=== PATIENT | male | born 1960 | race Caucasian/White ===

== ENCOUNTER 2022-12-19 14:18 | Inpatient (IN) | payer OTHER, SELFPAY ==
[2022-12-19] VITALS (34 sets, daily range): BP systolic 103–141; BP diastolic 61–72; PULSE 79–91; RESP 12–32; TEMP 37.4; O2SAT 96–100; BMI 51.5
--- NOTE | ~2022-12-19 | XR_ITS ---
EXAMINATION: XR foot RT min 3V DATE: 12/20/2022 05:52 INDICATION: Right foot diabetic ulcer. TECHNIQUE: 3 views of right foot were obtained. COMPARISON: None. FINDINGS: There is amputation of diaphysis of fifth metatarsal. There are erosions of base of fourth proximal phalanx and head of fourth metatarsal. No fracture. There is mild to moderate osteoarthritis of many of the midfoot joints, metatarsophalangeal joints, and interphalangeal joints. There are ent hesophytes at the posterior and plantar aspects of calcaneal tuberosity. Vascular calcifications are noted. IMPRESSION: 1. Erosions of base of fourth proximal phalanx and head of fourth metatarsal, consistent with osteomy elitis. Reviewed, dictated and finalized at location A. IMPRESSION: 1. Erosions of base of fourth proximal phalanx and head of fourth metatarsal, c onsistent with osteomyelitis.
--- NOTE | 2022-12-19 14:49 | PC.NURSE ---
Pt states he is here because his HGB is low. States his HGB is chronically low and has a hx of cancer of Hodgkin's lymphoma. States think the low HGB is due his body not reproducing blood cells. HX of DM, arthritis, HTN, HLD. Pt has a power port in his right chest. Pt has an indwelling schwartz and boots on his lower extremities. Pt is missing half of his first big toe and second toe on his left foot from diabetes. He has also lost his small toe on his right foot from a previous accident. Pt is c/o right sided lower back pain.
[2022-12-19 15:07] LABS: Immature Granulocyte Absolute 0.03 K/mm3 (0.00-0.031); Immature Granulocyte Percent A 0.9 % (0-0.5); Immature Platelet Fraction Pct 5.9 % (0.9-11.2); Lymphocytes Absolute Auto 0.95 K/mm3 (0.9-3.2); Mean Corpuscular HGB Conc 30.2 g/dl (32-36); Mean Corpuscular Hemoglobin 33.9 pg (26-34); Mean Corpuscular Volume 112.2 fl (80-100); Mean Platelet Volume 11.3 fl (7.4-10.4); Monocytes Absolute Auto 0.8 K/mm3 (0.1-0.6); Monocytes Percent Auto 22.4 % (2.6-8.5); Neutrophils Absolute Auto 1.7 K/mm3 (1.3-6.7); Neutrophils Percent Auto 48.7 % (45.5-73.1); Platelet Count Result 107 k/mm3 (150-375); Red Cell Distribution Width 18.5 % (11.5-14.5); White Blood Count 3.4 K/mm3 (4.5-10.0)
[2022-12-19 15:16] LABS: INR 1.1; Prothrombin Time 14.1 Seconds (11.1-14.7)
[2022-12-19 15:18] LABS: Partial Thromboplastin Time 51.9 SECONDS (22.3-36.8)
[2022-12-19 15:23] LABS: Alanine Aminotransferase 24 U/L (6-50); Alkaline Phosphatase 63 U/L (38-126); Anion Gap 2 mmol/L (8-16); Aspartate Amino Transferase 24 U/L (17-59); Bilirubin,Total 1.2 mg/dL (0.2-1.3); Blood Urea Nitrogen 18 mg/dL (9-20); Calcium 7.8 mg/dL (8.4-10.2); Carbon Dioxide 33 mmol/L (22-30); Chloride 102 mmol/L (98-107); Estimated CRCL calculation 136 ml/min; Estimated Glomerular Filt Rate > 60; Glucose 121 mg/dL (65-110); Sodium 137 mmol/L (137-145)
[2022-12-19 15:34] LABS: Hematocrit 20.2 % (42.0-52.0); Hemoglobin 6.1 g/dL (14.0-18.0)
[2022-12-19 15:40] LABS: Anisocytosis 1+ (NORMAL); Macrocytosis 1+ (NORMAL); Platelet Estimate Decreased (Adequate); Schistocytes None Seen (NORMAL)
--- NOTE | 2022-12-19 15:43 | ED.RECABL ---
HPI - Recheck/Abnormal Lab/Rx General Chief Complaint: Recheck/Abnormal Lab/Rx <Zakiya Rose PA-C - Last Filed: 12/19/22 19:43> Stated Complaint: ABN LABS <Zakiya Rose PA-C - Last Filed: 12/19/22 19:43> Time Seen by Provider: 12/19/22 14:57 <RAYSA Amador Last Filed: 12/19/22 19:43> Source: patient and old records reviewed <RAYSA Amador Last Filed: 12/19/22 19:43> Mode of arrival: EMS <RAYSA Amador Last Filed: 12/19/22 19:43> Limitations: no limitations <RAYSA Amador Last Filed: 12/19/22 19:43> History of Present Illness HPI narrative: Patient is a 62-year-old male, with PMH of Hodgkin Lymphoma, who presents to the ED via EMS with report of abnormal labs. Patient is currently a resident of [facility]. Patient reports he was recently admitted to [facility] in [facility] for an extended period of time. He was discharged less than a week ago to the rehab facility. Patient has been in remission for Hodgkin's lymphoma for the last 8 years, but has had concerned that his bone marrow is not producing red blood cells. He had just received numerous blood transfusions over the last several weeks. He had outpatient labs drawn yesterday at the rehab facility and was told his hemoglobin was low at 6.2. He was then referred here for further evaluation. Patient states he has felt in his normal state of health the last few days. He has intermittent lightheadedness. Denies any recent bleeding, denies epistaxis, rectal bleeding, melena, hematuria, chest pain, difficulty breathing, abdominal pain, nausea, vomiting, fevers. Patient is on blood thinners. Patient sees a spindle sander/oncologist [place], but is scheduled to see a new heme-onc with [facility] on 12/31. <RAYSA Amador Last Filed: 12/19/22 19:43> Related Data Allergies/Adverse Reactions: Allergies Allergy/AdvReac Type Severity Reaction Status Date / Time aspirin Allergy Itching Verified 12/19/22 14:34 levofloxacin [From Levaquin] Allergy Rash Verified 12/19/22 14:34 <Zakiya Rose PA-C - Last Filed: 12/19/22 19:43> Review of Systems Review of Systems: CONSTITUTIONAL: Denies fever, chills, or sweats. CARDIOVASCULAR: Denies chest pain. RESPIRATORY: Denies dyspnea. GASTROINTESTINAL: Denies abdominal pain, nausea, rectal bleeding, vomiting, or diarrhea. GENITOURINARY: Denies dysuria or hematuria. MUSCULOSKELETAL: Denies back pain, joint pain, or myalgia. NEUROLOGIC: See HPI. <Zakiya Rose PA-C - Last Filed: 12/19/22 19:43> All systems reviewed & are unremarkable except as noted in HPI and below <Zakiya Rose PA-C - Last Filed: 12/19/22 19:43> [facility] Past Medical History Medical History: Medical History (Updated 12/19/22 @ 19:43 by Zakiya Rose PA-C) Hodgkin lymphoma <Zakiya Rose PA-C - Last Filed: 12/19/22 19:43> Exam Narrative: GENERAL: Chronically ill appearing, morbidly obese, non-toxic, in no acute distress. HEAD: Normocephalic, atraumatic. NECK: Supple. No adenopathy, no masses. RESPIRATORY: Airway patent, respirations nonlabored. Clear to auscultation bilaterally, no rales, rhonchi, wheezing. CARDIOVASCULAR: Regular rate and rhythm without murmurs, rubs, or gallops. Radial pulses 2+ and equal bilaterally. ABDOMINAL: Soft, nontender, nondistended, no hepatosplenomegaly. Normoactive BS. MUSCULOSKELETAL: Moves all extremities. Soft braces on BLE. Several toe amputations. SKIN: Warm, dry, pale. No rashes. NEURO: A&O X3. Speech clear. Cranial nerves II-XII grossly intact. No ataxic movements. PSYCHIATRIC: Appropriate mood and affect. Normal interaction. 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 I performed all aspects of the MDM as
--- NOTE | 2022-12-19 20:06 | ADMGEN ---
This patient, John Tony, was admitted to Medical Room 341-01. Patient/family oriented to hospital policies and general routines including ID bracelet, bed and alarms, visiting hours, pain management, procedures, bathroom and other care routines, personal items, smoking policy, room service/diet, and visiting hours. Information on how to activate the Rapid Response Team has been discussed. Patient/Family are encouraged to report perceived risks to care and to ask questions if they do not understand what they are told or what they should do.
[2022-12-19 21:51] LABS: Glucose Point of Care 151 mg/dl (65-105)
--- NOTE | 2022-12-19 22:28 | PM.IMHP ---
H&P: HPI History of Present Illness Date/Time: 12/19/22 22:28 Chief Complaint: Abnormal lab Narrative: this is a 62-year-old male patient who has a history of Hodgkin lymphoma. The patient presented to the emergency room with report of abnormal labs. The patient did have an extensive stay at [facility] in [facility]. The patient is currently at [facility] an adverse ill. The patient has a Port-A-Cath and has been treated for lymphoma for the last 8 years. The patient stated that he has been having some chemotherapy. The patient has intermittent lightheadedness. He appears pale. He denies any recent bleeding or nose bleed. He denies having any chest pain or difficulty breathing. No shortness of breath. No nausea vomiting or diarrhea. The patient sees a spanish interpreter/translator /oncologist in [place] but is scheduled to see a new physician at with [facility] on 12/31/2022. His white count 3.4. RBC 1.8. H&H is 6.1 and 20.2. MCV is 112.2. Platelets 107. Blood sugar 151. The patient has been typed and cross-matched for packed red blood cells however the patient has multiple antibiotic and he stated that his taken up to 28 hours in the past to receive a unit of packed red blood cells. The patient is very pale at this time. The patient was also noted to have a chronic diabetic foot ulcer on the left outer surface. The patient stated that he recently received antibiotics for that wound to his left foot. The patient was started on IV fluids. The patient is being admitted to observation status on the date of service of 12/19/2022 Review of Systems Review of Systems: All systems reviewed & are unremarkable except as noted in HPI and below Constitutional: Constitutional: Reports as per HPI and Reports no additional constitutional complaints Eyes: Eyes: Reports as per HPI and Reports no additional eye complaints ENT: Reports system reviewed and no additional complaints, except as documented and Reports Normal hearing present Cardiovascular: Cardiovascular: Reports no additional cardiovascular complaints Respiratory: Respiratory: Reports no additional respiratory complaints and Reports no additional respiratory complaints Gastrointestinal: Gastrointestinal: Reports as per HPI and Reports no additional gastrointestinal complaints Musculoskeletal: Musculoskeletal: Reports no additional musculoskeletal complaints Integumentary/Breasts: Skin/Breast: Reports system reviewed and no additional complaints, except as docu and Reports as per HPI Neurologic: Reports system reviewed and no additional complaints, except as documented, Reports as per HPI and Reports Normal hearing present Psychiatric: Psychiatric: Reports no additional psychiatric complaints and Reports as per HPI Endocrine: Endocrine: Reports no additional endocrine complaints Hematologic/Lymphatic: Hematologic/Lymphatic: Reports no additional hematologic/lymphatic complaints Allergic/Immunologic: Allergic/Immunologic: Reports no additional allergic/immunologic complaints [facility] Past Medical History Medical History (Updated 12/20/22 @ 02:36 by Corinne Griffin NP) Chronic indwelling Murillo catheter Diabetic foot ulcer DM2 (diabetes mellitus, type 2) History of kidney stones Hodgkin lymphoma Hyperlipidemia Hypertension Port-A-Cath in place Surgical History Surgical History (Updated 12/20/22 @ 02:23 by Corinne Griffin NP) History of renal stent History of surgery on lower extremity repair of right thigh muscle. Family History Family History Father Acute myocardial infarction Congestive heart failure Diabetes mellitus Hypertension Mother Acute myocardial infarction Cerebrovascular accident Congestive heart failure Diabetes mellitus Hypertension Sibling Asthma Father Asthma Daughter Asthma Social History Social History (Updated 12/20/22 @ 02:24 by Corinne
[2022-12-20] VITALS (11 sets, daily range): BP systolic 109–131; BP diastolic 52–68; PULSE 63–90; RESP 14–20; TEMP 35.7–37.1; O2SAT 97–100
[2022-12-20] MEDS: CEFEPIME 2 GM/NS 50 ML 2 GM/50 ML BAG IVPB ×2 (03:03→17:24)
[2022-12-20] MEDS: metroNIDAZOLE 500 MG/ISO 100ML 500 MG/100 ML BAG 100 MG IVPB ×3 (03:45→21:37)
[2022-12-20] MEDS: VANCOMYCIN 1,250 MG/NS 250 ML 1,250 MG/250 ML BAG 166.67 MG IVPB ×2 (04:19→05:59)
[2022-12-20] MEDS: ACETAMINOPHEN 325 MG TABLET 650 MG PO (07:41)
[2022-12-20 08:37] LABS: Glucose Point of Care 207 mg/dl (65-105)
[2022-12-20] MEDS: INSULIN ASPART (*BKC) 100 UNITS/ML SUB-Q ×4 (08:58→21:34)
[2022-12-20] MEDS: amLODIPine BESYLATE 5 MG TABLET 10 MG PO (09:03)
[2022-12-20] MEDS: DULoxetine HCL 30 MG CAPSULE.DR PO (09:04)
[2022-12-20] MEDS: FERROUS SULFATE 324 MG TABLET PO (09:04)
[2022-12-20] MEDS: FAMOTIDINE 20 MG TABLET PO ×2 (09:04→17:38)
[2022-12-20] MEDS: CYANOCOBALAMIN 500 MCG TABLET PO (09:04)
[2022-12-20] MEDS: POTASSIUM CHLORIDE 10 MEQ TABLET.ER PO ×2 (09:05→17:39)
[2022-12-20] MEDS: FOLIC ACID 1 MG TABLET PO (09:05)
[2022-12-20] MEDS: MAGNESIUM OXIDE 400 MG TABLET PO (09:05)
[2022-12-20] MEDS: MULTIVITAMINS THERAPEUTIC TAB (*BKC) 1 TABLET PO (09:05)
[2022-12-20] MEDS: MICONAZOLE NITRATE 2% CREAM 30 GM TUBE 1 APPLIC TOPICAL ×2 (09:06→17:38)
[2022-12-20] MEDS: INSULIN GLARGINE (*BKC) 100 UNITS/ML 35 UNITS SUB-Q ×2 (09:09→17:27)
[2022-12-20] MEDS: SODIUM CHLORIDE 0.9% IV 250 ML 30 ML IV CONT (11:54)
[2022-12-20 12:34] LABS: Glucose Point of Care 224 mg/dl (65-105)
--- NOTE | 2022-12-20 13:03 | WPDPN ---
Progress Note: A&P Assessment and Plan (1) Pancytopenia: Code(s): D61.818 - Other pancytopenia Status: Acute Assessment and Plan: the patient did have an extensive stay at [facility]. I am requesting medical records from that hospital stay. The patient has a Port-A-Cath and states that he takes chemotherapy for his Hodgkin's lymphoma. I asked the patient if he wanted to see the oncologist water pipe installer here. However the patient stated that next week he has a an appointment with an water pipe installer / oncologist at [facility] and will like to follow up with that appointment. The patient stated he would not like to follow water pipe installer here at this time. However the patient stated that he just wants to get his blood transfusion be discharged back to home. However the patient has multiple antibodies so it may take some time for the patient to receive his blood transfusion. The patient stated that it took 28 hours to receive his blood the last time that he received blood. The patient stated he has had multiple transfusions in the past. 12/20/2022 interval history: patient with hx of Hodgkin lymphoma presented with anemia with a hemoglobin of 6, patient denies any any bleeding or bruising, this is persistent patient is seen by water pipe installer being treated, will transfuse 1 unit of pack RBC, also patient has history of diabetes and lower extremity diabetic wound being treated with Cefepime and and vancomycin, will have a wound team evaluate the patient. (2) Hodgkin lymphoma: Code(s): C81.90 - Hodgkin lymphoma, unspecified, unspecified site Status: Acute Assessment and Plan: The patient stated he is undergoing chemotherapy and that he will see a new water pipe installer oncologist at [facility] this next week. (3) Hypertension: Code(s): I10 - Essential (primary) hypertension Status: Acute Assessment and Plan: Continue with amlodipine and doxepin. (4) Diabetic foot ulcer: Code(s): E11.621 - Type 2 diabetes mellitus with foot ulcer; L97.509 - Non-pressure chronic ulcer of other part of unspecified foot with unspecified severity Status: Acute Assessment and Plan: The patient was started on antibiotic stewardship for cellulitis and diabetic patient. He is on cefepime Flagyl and vancomycin. Pharmacy to dose please blood and wound culture pending. Wound care consult was placed. (5) DM2 (diabetes mellitus, type 2): Code(s): E11.9 - Type 2 diabetes mellitus without complications Status: Acute Assessment and Plan: Accu-Cheks AC and HS with sliding scale insulin. Check A1c if not checked in the last 3 months. (6) Hyperlipidemia: Code(s): E78.5 - Hyperlipidemia, unspecified Status: Acute Assessment and Plan: continue with atorvastatin. (7) Chronic indwelling Murillo catheter: Code(s): Z97.8 - Presence of other specified devices Status: Acute Assessment and Plan: The patient stated that he has had this for years. Subjective Date/time seen: 12/20/22 13:03 Interval history: Chief Complaint: ? Abnormal lab HPI-Narrative: ?this is a 62-year-old male patient who has a history of Hodgkin lymphoma.? The patient presented to the emergency room with report of abnormal labs.? The patient did have an extensive stay at [facility] in [facility] The patient is currently at [facility] an adverse ill.? The patient has a Port-A-Cath and has been treated for lymphoma for the last 8 years.? The patient stated that he has been having some chemotherapy.? The patient has intermittent lightheadedness.? He appears pale.? He denies any recent bleeding or nose bleed.? He denies having any chest pain or difficulty breathing.? No shortness of breath.? No nausea vomiting or diarrhea.? The patient sees a water pipe installer /oncologist in [place] but is scheduled to see a new physician at with [facility]
[2022-12-20 17:26] LABS: Glucose Point of Care 238 mg/dl (65-105)
[2022-12-20] MEDS: CALCIUM CARBONATE (TUMS) 500 MG (200 MG ELEMENTAL) PO (18:09)
[2022-12-20 20:53] LABS: Glucose Point of Care 271 mg/dl (65-105)
[2022-12-20] MEDS: DOXEPIN HCL 25 MG CAPSULE PO (21:35)
[2022-12-20] MEDS: ATORVASTATIN 40 MG TABLET PO (21:35)
[2022-12-21] VITALS (8 sets, daily range): BP systolic 120–149; BP diastolic 58–70; PULSE 77–81; RESP 17–20; TEMP 35.9–36.9; O2SAT 96–99
[2022-12-21] MEDS: CEFEPIME 2 GM/NS 50 ML 2 GM/50 ML BAG IVPB ×2 (04:00→16:07)
[2022-12-21 05:04] LABS: Immature Granulocyte Absolute 0.03 K/mm3 (0.00-0.031); Immature Granulocyte Percent A 1.1 % (0-0.5); Immature Platelet Fraction Pct 4.6 % (0.9-11.2); Lymphocytes Absolute Auto 0.79 K/mm3 (0.9-3.2); Lymphocytes Percent Auto 29.4 % (18.3-44.2); Mean Corpuscular HGB Conc 31.4 g/dl (32-36); Mean Corpuscular Hemoglobin 33.3 pg (26-34); Mean Corpuscular Volume 106.3 fl (80-100); Mean Platelet Volume 11.3 fl (7.4-10.4); Monocytes Absolute Auto 0.7 K/mm3 (0.1-0.6); Monocytes Percent Auto 26.8 % (2.6-8.5); Neutrophils Absolute Auto 1.2 K/mm3 (1.3-6.7); Neutrophils Percent Auto 42.7 % (45.5-73.1); Platelet Count Result 88 k/mm3 (150-375); Red Blood Count 1.92 M/mm3 (4.6-6.20); Red Cell Distribution Width 19.5 % (11.5-14.5); White Blood Count 2.7 K/mm3 (4.5-10.0)
[2022-12-21 05:18] LABS: Alanine Aminotransferase 19 U/L (6-50); Albumin Level 2.7 g/dL (3.5-5.1); Alkaline Phosphatase 61 U/L (38-126); Anion Gap 4 mmol/L (8-16); Aspartate Amino Transferase 21 U/L (17-59); Bilirubin,Total 1.3 mg/dL (0.2-1.3); Blood Urea Nitrogen 16 mg/dL (9-20); Calcium 7.6 mg/dL (8.4-10.2); Carbon Dioxide 30 mmol/L (22-30); Chloride 101 mmol/L (98-107); Estimated CRCL calculation 132 ml/min; Estimated Glomerular Filt Rate > 60; Glucose 229 mg/dL (65-110); Magnesium 1.4 mg/dL (1.6-2.3); Potassium 3.7 mmol/L (3.4-5.0); Sodium 135 mmol/L (137-145)
[2022-12-21 05:24] LABS: Hematocrit 20.4 % (42.0-52.0); Hemoglobin 6.4 g/dL (14.0-18.0)
[2022-12-21] MEDS: metroNIDAZOLE 500 MG/ISO 100ML 500 MG/100 ML BAG 100 MG IVPB ×3 (06:40→21:34)
[2022-12-21 06:54] LABS: Anisocytosis 2+ (NORMAL); Hypochromasia 1+ (NORMAL); Platelet Estimate Decreased (Adequate); Schistocytes None Seen (NORMAL)
[2022-12-21 08:36] LABS: Glucose Point of Care 243 mg/dl (65-105)
[2022-12-21] MEDS: INSULIN ASPART (*BKC) 100 UNITS/ML SUB-Q ×4 (08:55→21:34)
[2022-12-21] MEDS: INSULIN GLARGINE (*BKC) 100 UNITS/ML 35 UNITS SUB-Q ×2 (08:56→17:41)
[2022-12-21] MEDS: POTASSIUM CHLORIDE 10 MEQ TABLET.ER PO ×2 (09:01→17:05)
[2022-12-21] MEDS: MAGNESIUM OXIDE 400 MG TABLET PO (09:01)
[2022-12-21] MEDS: amLODIPine BESYLATE 5 MG TABLET 10 MG PO (09:01)
[2022-12-21] MEDS: FERROUS SULFATE 324 MG TABLET PO (09:02)
[2022-12-21] MEDS: MULTIVITAMINS THERAPEUTIC TAB (*BKC) 1 TABLET PO (09:02)
[2022-12-21] MEDS: CYANOCOBALAMIN 500 MCG TABLET PO (09:02)
[2022-12-21] MEDS: FOLIC ACID 1 MG TABLET PO (09:02)
[2022-12-21] MEDS: FAMOTIDINE 20 MG TABLET PO ×2 (09:02→17:06)
[2022-12-21] MEDS: DULoxetine HCL 30 MG CAPSULE.DR PO (09:02)
[2022-12-21] MEDS: MICONAZOLE NITRATE 2% CREAM 30 GM TUBE 1 APPLIC TOPICAL ×2 (09:03→17:05)
--- NOTE | 2022-12-21 10:04 | PM.IMPN ---
Progress Note: A&P Assessment and Plan (1) Pancytopenia: Code(s): D61.818 - Other pancytopenia Status: Acute Assessment and Plan: patient with hx of Hodgkin lymphoma presented with anemia with a hemoglobin of 6, patient denies any any bleeding or bruising, this is persistent patient is seen by strike on machine operator being treated, transfuse 2 unit of pack RBC, hemoglobin is still low at 6.4. Will transfuse 2 more units (2) Hodgkin lymphoma: Code(s): C81.90 - Hodgkin lymphoma, unspecified, unspecified site Status: Acute Assessment and Plan: The patient stated he is undergoing chemotherapy and that he will see a new strike on machine operator oncologist at [facility] this next week. (3) Hypertension: Code(s): I10 - Essential (primary) hypertension Status: Acute Assessment and Plan: Continue with amlodipine and doxepin. (4) Diabetic foot ulcer: Code(s): E11.621 - Type 2 diabetes mellitus with foot ulcer; L97.509 - Non-pressure chronic ulcer of other part of unspecified foot with unspecified severity Status: Acute Assessment and Plan: The patient was started on antibiotic stewardship for cellulitis and diabetic patient. He is on cefepime Flagyl and vancomycin. Pharmacy to dose please blood and wound culture pending. Wound care consult was placed. (5) DM2 (diabetes mellitus, type 2): Code(s): E11.9 - Type 2 diabetes mellitus without complications Status: Acute Assessment and Plan: Accu-Cheks AC and HS with sliding scale insulin. (6) Hyperlipidemia: Code(s): E78.5 - Hyperlipidemia, unspecified Status: Acute Assessment and Plan: continue with atorvastatin. (7) Chronic indwelling Murillo catheter: Code(s): Z97.8 - Presence of other specified devices Status: Acute Assessment and Plan: The patient stated that he has had this for years. Subjective Date/time seen: 12/21/22 10:04 Interval history: No issues at present Review of Systems Review of Systems: All systems reviewed & are unremarkable except as noted in HPI and below Exam Narrative: Morbidly obese Patient is comfortable, NAD HEENT: eyes are clear and none icteric LUNGS: Normal respiratory effort ABD: Obese distended Lower extremities: no edema SKIN: nonjaundiced Neuro: grossly intact. Objective Data Vital Signs Vital Signs: Vital Signs - 24 hr 12/20/22 12:03 12/20/22 12:18 12/20/22 12:18 Temperature 96.6 F L 96.6 F L 96.7 F L Pulse Rate 78 82 90 Respiratory Rate 14 14 16 Blood Pressure 123/54 L 115/56 L 131/67 Pulse Oximetry 98 100 100 12/20/22 13:06 12/20/22 13:09 12/20/22 14:13 Temperature 96.3 F L 96.3 F L 96.6 F L Pulse Rate 83 83 77 Respiratory Rate 14 14 16 Blood Pressure 122/61 122/61 125/55 L Pulse Oximetry 98 98 97 12/20/22 14:28 12/20/22 14:49 12/20/22 15:13 Temperature 96.5 F L 96.8 F L 96.9 F L Pulse Rate 79 80 80 Respiratory Rate 16 16 14 Blood Pressure 109/56 L 119/60 130/66 Pulse Oximetry 100 97 98 12/20/22 19:52 12/21/22 04:11 Temperature 98.7 F 98.4 F Pulse Rate 63 79 Respiratory Rate 20 20 Blood Pressure 121/68 131/58 L Pulse Oximetry 100 96 Intake/Output Intake/Output: Intake & Output 12/18/22 12/19/22 12/20/22 12/21/22 23:59 23:59 23:59 23:59 Intake Total 350 / 350 3092 / 3092 460 / 460 Output Total 2450 / 2450 1050 / 1050 Balance 350 / 350 642 / 642 -590 / -590 Meds/Results Medications: Active Medications Generic Name Dose Route Start Last Admin Trade Name Shai PRN Reason Stop Dose Admin Acetaminophen 650 mg 12/20/22 02:15 12/20/22 07:41 Acetaminophen 325 Mg Tablet PO 650 mg Q4H PRN Administration Pain (Scale Score 1-3) Albuterol 2.5 mg 12/20/22 02:15 Albuterol Sulfate Neb 2.5 Mg/3 Ml Inh INHALATION Q4H PRN Shortness Of Breath Or Wheezing Amlodipine Besylate 10 mg 12/20/22 09:00 12/21/22 09:01 Amlodipine Besylat
[2022-12-21] MEDS: SODIUM CHLORIDE 0.9% IV 250 ML 30 ML IV CONT (11:54)
[2022-12-21 12:20] LABS: Glucose Point of Care 231 mg/dl (65-105)
[2022-12-21 17:30] LABS: Glucose Point of Care 284 mg/dl (65-105)
[2022-12-21 17:48] LABS: Vancomycin Trough 15.8 ug/mL (10.0-20.0)
[2022-12-21 20:46] LABS: Glucose Point of Care 316 mg/dl (65-105)
[2022-12-21] MEDS: DOXEPIN HCL 25 MG CAPSULE PO (21:34)
[2022-12-21] MEDS: ATORVASTATIN 40 MG TABLET PO (21:34)
[2022-12-22] VITALS (9 sets, daily range): BP systolic 111–146; BP diastolic 65–98; PULSE 70–82; RESP 16–20; TEMP 36.4–37.4; O2SAT 95–100
[2022-12-22] MEDS: CEFEPIME 2 GM/NS 50 ML 2 GM/50 ML BAG IVPB (03:27)
[2022-12-22] MEDS: ACETAMINOPHEN 325 MG TABLET 650 MG PO (03:28)
[2022-12-22 05:33] LABS: Hematocrit 22.6 % (42.0-52.0); Hemoglobin 7.2 g/dL (14.0-18.0); Immature Granulocyte Absolute 0.03 K/mm3 (0.00-0.031); Immature Granulocyte Percent A 1.1 % (0-0.5); Lymphocytes Absolute Auto 0.78 K/mm3 (0.9-3.2); Lymphocytes Percent Auto 29.3 % (18.3-44.2); Mean Corpuscular HGB Conc 31.9 g/dl (32-36); Mean Corpuscular Hemoglobin 33.6 pg (26-34); Mean Corpuscular Volume 105.6 fl (80-100); Mean Platelet Volume 11.3 fl (7.4-10.4); Monocytes Absolute Auto 0.8 K/mm3 (0.1-0.6); Monocytes Percent Auto 31.2 % (2.6-8.5); Neutrophils Percent Auto 38.4 % (45.5-73.1); Platelet Count Result 88 k/mm3 (150-375); Red Blood Count 2.14 M/mm3 (4.6-6.20); White Blood Count 2.7 K/mm3 (4.5-10.0)
[2022-12-22 05:44] LABS: Alanine Aminotransferase 17 U/L (6-50); Albumin Level 2.8 g/dL (3.5-5.1); Alkaline Phosphatase 58 U/L (38-126); Anion Gap 3 mmol/L (8-16); Aspartate Amino Transferase 18 U/L (17-59); Bilirubin,Total 1.2 mg/dL (0.2-1.3); Blood Urea Nitrogen 15 mg/dL (9-20); Calcium 7.4 mg/dL (8.4-10.2); Carbon Dioxide 30 mmol/L (22-30); Chloride 102 mmol/L (98-107); Estimated CRCL calculation 132 ml/min; Estimated Glomerular Filt Rate > 60; Glucose 185 mg/dL (65-110); Magnesium 1.4 mg/dL (1.6-2.3); Potassium 3.3 mmol/L (3.4-5.0); Sodium 135 mmol/L (137-145)
[2022-12-22 05:52] LABS: Platelet Estimate Decreased (Adequate); Schistocytes None Seen (NORMAL)
[2022-12-22] MEDS: metroNIDAZOLE 500 MG/ISO 100ML 500 MG/100 ML BAG 100 MG IVPB (07:34)
[2022-12-22 08:26] LABS: Glucose Point of Care 187 mg/dl (65-105)
[2022-12-22] MEDS: FAMOTIDINE 20 MG TABLET PO ×2 (08:55→17:17)
[2022-12-22] MEDS: amLODIPine BESYLATE 5 MG TABLET 10 MG PO (08:55)
[2022-12-22] MEDS: ERGOCALCIFEROL 50,000 UNITS CAPSULE 50000 UNITS PO (08:56)
[2022-12-22] MEDS: FOLIC ACID 1 MG TABLET PO (08:56)
[2022-12-22] MEDS: FERROUS SULFATE 324 MG TABLET PO (08:56)
[2022-12-22] MEDS: DULoxetine HCL 30 MG CAPSULE.DR PO (08:56)
[2022-12-22] MEDS: MAGNESIUM OXIDE 400 MG TABLET PO (08:56)
[2022-12-22] MEDS: MULTIVITAMINS THERAPEUTIC TAB (*BKC) 1 TABLET PO (08:56)
[2022-12-22] MEDS: CYANOCOBALAMIN 500 MCG TABLET PO (08:56)
[2022-12-22] MEDS: POTASSIUM CHLORIDE 10 MEQ TABLET.ER PO ×2 (08:56→18:54)
[2022-12-22] MEDS: INSULIN GLARGINE (*BKC) 100 UNITS/ML 35 UNITS SUB-Q ×2 (08:57→17:14)
[2022-12-22] MEDS: MICONAZOLE NITRATE 2% CREAM 30 GM TUBE 1 APPLIC TOPICAL ×2 (08:59→17:12)
[2022-12-22] MEDS: MAGNESIUM SULF 2 GM/WATER 50ML 2 GM/50 ML BAG IVPB (09:05)
[2022-12-22] MEDS: POTASSIUM CHLORIDE 20 MEQ TABLET 40 MEQ PO (09:05)
[2022-12-22] MEDS: SODIUM CHLORIDE 0.9% IV 250 ML 30 ML (10:00)
--- NOTE | 2022-12-22 11:49 | PM.IMPN ---
Progress Note: A&P Assessment and Plan (1) Pancytopenia: Code(s): D61.818 - Other pancytopenia Status: Acute Assessment and Plan: patient with hx of Hodgkin lymphoma presented with anemia with a hemoglobin of 6, patient denies any any bleeding or bruising, patient is seen by boarder machine being treated, 4 units of PRBC being transfused (2) Hodgkin lymphoma: Code(s): C81.90 - Hodgkin lymphoma, unspecified, unspecified site Status: Acute Assessment and Plan: The patient stated he is undergoing chemotherapy and that he will see a new boarder machine oncologist at [facility] this next week. (3) Hypertension: Code(s): I10 - Essential (primary) hypertension Status: Acute Assessment and Plan: Continue with amlodipine and doxepin. (4) Diabetic foot ulcer: Code(s): E11.621 - Type 2 diabetes mellitus with foot ulcer; L97.509 - Non-pressure chronic ulcer of other part of unspecified foot with unspecified severity Status: Acute Assessment and Plan: The patient was started on cefepime Flagyl and vancomycin. Blood cultures negative so far. Wound culture growing Staph aureus. Discontinue cefepime and Flagyl and continue vancomycin. Sensitivity pending Wound care consult was placed. (5) DM2 (diabetes mellitus, type 2): Code(s): E11.9 - Type 2 diabetes mellitus without complications Status: Acute Assessment and Plan: Accu-Cheks AC and HS with sliding scale insulin. (6) Hyperlipidemia: Code(s): E78.5 - Hyperlipidemia, unspecified Status: Acute Assessment and Plan: continue with atorvastatin. (7) Chronic indwelling Murillo catheter: Code(s): Z97.8 - Presence of other specified devices Status: Acute Assessment and Plan: The patient stated that he has had this for years. (8) Electrolyte abnormality: Code(s): E87.8 - Other disorders of electrolyte and fluid balance, not elsewhere classified Status: Acute Assessment and Plan: Low potassium magnesium being replaced Subjective Date/time seen: 12/22/22 11:49 Interval history: Remains stable. No acute events Review of Systems Review of Systems: All systems reviewed & are unremarkable except as noted in HPI and below Exam Narrative: Morbidly obese Patient is comfortable, NAD HEENT: eyes are clear and none icteric LUNGS: Normal respiratory effort ABD: Obese distended Lower extremities: no edema SKIN: nonjaundiced Neuro: grossly intact. Objective Data Vital Signs Vital Signs: Vital Signs - 24 hr 12/21/22 11:50 12/21/22 12:06 12/21/22 13:00 Temperature 97.0 F L 96.6 F L 97.2 F L Pulse Rate 77 81 78 Respiratory Rate 17 18 17 Blood Pressure 120/63 140/66 139/58 L Pulse Oximetry 99 98 99 Oxygen Delivery 12/21/22 14:00 12/21/22 19:33 12/21/22 20:00 Temperature 97.3 F L 98.2 F Pulse Rate 80 79 Respiratory Rate 18 18 Blood Pressure 149/70 H 131/58 L Pulse Oximetry 98 97 Oxygen Delivery Room Air 12/22/22 03:57 12/22/22 09:38 12/22/22 10:23 Temperature 97.5 F L 98.4 F Pulse Rate 77 70 Respiratory Rate 16 18 Blood Pressure 132/67 128/67 Pulse Oximetry 98 99 99 Oxygen Delivery Room Air 12/22/22 10:39 Temperature 98.2 F Pulse Rate 72 Respiratory Rate 18 Blood Pressure 111/85 Pulse Oximetry 95 Oxygen Delivery Intake/Output Intake/Output: Intake & Output 12/19/22 12/20/22 12/21/22 12/22/22 23:59 23:59 23:59 23:59 Intake Total 350 / 350 3092 / 3092 4580 / 4580 642 / 642 Output Total 2450 / 2450 2850 / 2850 1999 / 1999 Balance 350 / 350 642 / 642 1730 / 1730 -1358 / -1358 Meds/Results Medications: Active Medications Generic Name Dose Route Start Last Admin Trade Name Freq PRN Reason Stop Dose Admin Acetaminophen 650 mg 12/20/22 02:15 12/22/22 03:28 Acetaminophen 325 Mg Tablet PO 650 mg Q4H PRN Administration Pain (Scale Score 1-3) Albuterol
[2022-12-22 12:03] LABS: Glucose Point of Care 187 mg/dl (65-105)
[2022-12-22 12:25] LABS: Appearance Urine Cloudy (Clear); Bacteria Urine 2+ /hpf; Bilirubin Urine Negative (Negative); Blood Urine 3+ (Negative); Color Urine Yellow (Yellow); Glucose Urine UA Negative (Negative); Ketones Urine Negative (Negative); Leukocyte Esterase Ur 3+ LEU/UL (Negative); Nitrate Urine Positive (Negative); Protein Urine 2+ mg/dL (Negative); RBC Urine 21-50 /hpf (0-2); Squamous Epithelial Cell Urine None seen /hpf (Few); Urobilinogen Urine 0.2 mg/dL (<2.0); WBC Urine >100 /hpf; pH Urine 6.5 (5.0-9.0)
[2022-12-22 12:32] LABS: Add Urine Microscopic? YES
[2022-12-22] MEDS: CALCIUM CARBONATE (TUMS) 500 MG (200 MG ELEMENTAL) PO (16:03)
[2022-12-22 17:18] LABS: Glucose Point of Care 266 mg/dl (65-105)
[2022-12-22] MEDS: INSULIN ASPART (*BKC) 100 UNITS/ML SUB-Q ×2 (17:18→21:51)
[2022-12-22 17:39] LABS: Hematocrit 23.4 % (42.0-52.0); Hemoglobin 7.4 g/dL (14.0-18.0)
[2022-12-22] MEDS: ATORVASTATIN 40 MG TABLET PO (21:50)
[2022-12-22] MEDS: DOXEPIN HCL 25 MG CAPSULE PO (21:50)
[2022-12-22 21:55] LABS: Glucose Point of Care 278 mg/dl (65-105)
[2022-12-23 04:50] VITALS: BP 165/62; PULSE 76; RESP 18; TEMP 36.7; O2SAT 100
[2022-12-23] MEDS: ACETAMINOPHEN 325 MG TABLET 650 MG PO (05:54)
[2022-12-23 06:14] LABS: Hematocrit 24.5 % (42.0-52.0); Hemoglobin 7.8 g/dL (14.0-18.0); Immature Granulocyte Absolute 0.02 K/mm3 (0.00-0.031); Immature Granulocyte Percent A 0.7 % (0-0.5); Immature Platelet Fraction Pct 5.3 % (0.9-11.2); Lymphocytes Absolute Auto 0.97 K/mm3 (0.9-3.2); Mean Corpuscular HGB Conc 31.8 g/dl (32-36); Mean Corpuscular Hemoglobin 32.9 pg (26-34); Mean Corpuscular Volume 103.4 fl (80-100); Mean Platelet Volume 11.2 fl (7.4-10.4); Monocytes Absolute Auto 0.8 K/mm3 (0.1-0.6); Monocytes Percent Auto 27.8 % (2.6-8.5); Neutrophils Percent Auto 36.5 % (45.5-73.1); Platelet Count Result 91 k/mm3 (150-375); Red Blood Count 2.37 M/mm3 (4.6-6.20); Red Cell Distribution Width 18.7 % (11.5-14.5); White Blood Count 2.8 K/mm3 (4.5-10.0)
[2022-12-23 06:20] LABS: Magnesium 1.6 mg/dL (1.6-2.3)
[2022-12-23 07:26] LABS: Anisocytosis 1+ (NORMAL); Macrocytosis 1+ (NORMAL); Platelet Estimate Decreased (Adequate)
[2022-12-23 07:27] LABS: Schistocytes None Seen (NORMAL)
[2022-12-23 08:49] LABS: Glucose Point of Care 236 mg/dl (65-105)
[2022-12-23] MEDS: INSULIN GLARGINE (*BKC) 100 UNITS/ML 35 UNITS SUB-Q ×2 (08:59→17:26)
[2022-12-23 09:00] VITALS: PULSE 76; RESP 18; O2SAT 100
[2022-12-23] MEDS: INSULIN ASPART (*BKC) 100 UNITS/ML SUB-Q ×4 (09:00→21:04)
[2022-12-23] MEDS: MAGNESIUM OXIDE 400 MG TABLET PO (09:06)
[2022-12-23] MEDS: POTASSIUM CHLORIDE 10 MEQ TABLET.ER PO ×2 (09:06→17:34)
[2022-12-23] MEDS: amLODIPine BESYLATE 5 MG TABLET 10 MG PO (09:07)
[2022-12-23] MEDS: FAMOTIDINE 20 MG TABLET PO ×2 (09:07→17:33)
[2022-12-23] MEDS: MULTIVITAMINS THERAPEUTIC TAB (*BKC) 1 TABLET PO (09:07)
[2022-12-23] MEDS: FERROUS SULFATE 324 MG TABLET PO (09:07)
[2022-12-23] MEDS: CYANOCOBALAMIN 500 MCG TABLET PO (09:08)
[2022-12-23] MEDS: DULoxetine HCL 30 MG CAPSULE.DR PO (09:08)
[2022-12-23] MEDS: MICONAZOLE NITRATE 2% CREAM 30 GM TUBE 1 APPLIC TOPICAL ×2 (09:10→17:34)
[2022-12-23] MEDS: FOLIC ACID 1 MG TABLET PO (09:10)
--- NOTE | 2022-12-23 11:16 | PM.IMPN ---
Progress Note: A&P Assessment and Plan (1) Pancytopenia: Code(s): D61.818 - Other pancytopenia Status: Acute Assessment and Plan: patient with hx of Hodgkin lymphoma presented with anemia with a hemoglobin of 6, patient denies any any bleeding or bruising, 4 units of PRBC being transfused. Hemoglobin stable now (2) Hodgkin lymphoma: Code(s): C81.90 - Hodgkin lymphoma, unspecified, unspecified site Status: Acute Assessment and Plan: The patient stated he is undergoing chemotherapy and that he will see a new strategic consultant oncologist at [facility] this next week. (3) Hypertension: Code(s): I10 - Essential (primary) hypertension Status: Acute Assessment and Plan: Continue with amlodipine and doxepin. (4) Diabetic foot ulcer: Code(s): E11.621 - Type 2 diabetes mellitus with foot ulcer; L97.509 - Non-pressure chronic ulcer of other part of unspecified foot with unspecified severity Status: Acute Assessment and Plan: Blood cultures negative so far. Wound culture growing Staph aureus. Discontinue cefepime and Flagyl and continue vancomycin. Wound culture growing MRSA sensitive to vancomycin and Bactrim. Continue vancomycin for now. Possible discharge tomorrow with oral Bactrim once urine cultures are finalized to cover both the wound and urine infection Wound care consult was placed. (5) DM2 (diabetes mellitus, type 2): Code(s): E11.9 - Type 2 diabetes mellitus without complications Status: Acute Assessment and Plan: Accu-Cheks AC and HS with sliding scale insulin. (6) Hyperlipidemia: Code(s): E78.5 - Hyperlipidemia, unspecified Status: Acute Assessment and Plan: continue with atorvastatin. (7) UTI (urinary tract infection): Code(s): N39.0 - Urinary tract infection, site not specified Status: Acute Assessment and Plan: Urine culture pending. Continue IV Rocephin for now. May be discharged on oral Bactrim if urine culture shows bacteria sensitive to Bactrim Subjective Date/time seen: 12/23/22 11:16 Interval history: Stable Review of Systems Review of Systems: All systems reviewed & are unremarkable except as noted in HPI and below Exam Narrative: Morbidly obese Patient is comfortable, NAD HEENT: eyes are clear and none icteric LUNGS: Normal respiratory effort ABD: Obese distended Lower extremities: no edema SKIN: nonjaundiced Neuro: grossly intact. Objective Data Vital Signs Vital Signs: Vital Signs - 24 hr 12/22/22 11:45 12/22/22 12:40 12/22/22 14:00 Temperature 98.0 F 98.8 F 99.0 F Pulse Rate 74 73 74 Respiratory Rate 16 18 18 Blood Pressure 116/98 H 146/74 H 135/66 Pulse Oximetry 97 100 99 Oxygen Delivery 12/22/22 20:17 12/22/22 20:00 12/23/22 04:50 Temperature 99.4 F 98.1 F Pulse Rate 82 76 Respiratory Rate 20 18 Blood Pressure 138/65 165/62 H Pulse Oximetry 99 100 Oxygen Delivery Room Air Intake/Output Intake/Output: Intake & Output 12/20/22 12/21/22 12/22/22 12/23/22 23:59 23:59 23:59 23:59 Intake Total 3092 / 3092 4580 / 4580 3380 / 3380 590 / 590 Output Total 2450 / 2450 2850 / 2850 4420 / 4420 1800 / 1800 Balance 642 / 642 1730 / 1730 -1040 / -1040 -1210 / -1210 Meds/Results Medications: Active Medications Generic Name Dose Route Start Last Admin Trade Name Freq PRN Reason Stop Dose Admin Acetaminophen 650 mg 12/20/22 02:15 12/23/22 05:54 Acetaminophen 325 Mg Tablet PO 650 mg Q4H PRN Administration Pain (Scale Score 1-3) Albuterol 2.5 mg 12/20/22 02:15 Albuterol Sulfate Neb 2.5 Mg/3 Ml Inh INHALATION Q4H PRN Shortness Of Breath Or Wheezing Amlodipine Besylate 10 mg 12/20/22 09:00 12/23/22 09:07 Amlodipine Besylate 5 Mg Tablet PO 10 mg DAILY HUNTER Administration Atorvastatin Calcium 40 mg 12/20/22 21:00 12/22/22 21:50 Atorvastatin 40 Mg Tablet PO 40 mg
[2022-12-23 11:59] LABS: Glucose Point of Care 230 mg/dl (65-105)
[2022-12-23] MEDS: MUPIROCIN 2% OINT 22 GM TUBE 1 APPLIC TOPICAL (12:42)
[2022-12-23] MEDS: CENTRAL LINE FLUSH 10 ML IV PUSH (12:43)
[2022-12-23 14:00] VITALS: BP 125/65; PULSE 80; RESP 18; TEMP 36.9; O2SAT 99
[2022-12-23 17:13] LABS: Glucose Point of Care 243 mg/dl (65-105)
[2022-12-23 20:48] VITALS: BP 114/69; PULSE 84; RESP 18; TEMP 37.3; O2SAT 98
[2022-12-23] MEDS: DOXEPIN HCL 25 MG CAPSULE PO (21:04)
[2022-12-23] MEDS: ATORVASTATIN 40 MG TABLET PO (21:04)
[2022-12-23 21:48] LABS: Glucose Point of Care 272 mg/dl (65-105)
[2022-12-24 04:21] VITALS: BP 131/74; PULSE 75; RESP 18; TEMP 36.7; O2SAT 98
[2022-12-24] MEDS: CENTRAL LINE FLUSH 10 ML IV PUSH ×3 (05:23→13:05)
[2022-12-24 05:41] LABS: Hematocrit 23.5 % (42.0-52.0); Hemoglobin 7.4 g/dL (14.0-18.0); Immature Granulocyte Absolute 0.03 K/mm3 (0.00-0.031); Immature Platelet Fraction Pct 5.7 % (0.9-11.2); Lymphocytes Absolute Auto 1.05 K/mm3 (0.9-3.2); Lymphocytes Percent Auto 35.1 % (18.3-44.2); Mean Corpuscular HGB Conc 31.5 g/dl (32-36); Mean Corpuscular Hemoglobin 32.9 pg (26-34); Mean Corpuscular Volume 104.4 fl (80-100); Mean Platelet Volume 11.1 fl (7.4-10.4); Monocytes Absolute Auto 0.8 K/mm3 (0.1-0.6); Monocytes Percent Auto 27.4 % (2.6-8.5); Neutrophils Absolute Auto 1.1 K/mm3 (1.3-6.7); Neutrophils Percent Auto 36.5 % (45.5-73.1); Platelet Count Result 94 k/mm3 (150-375); Red Blood Count 2.25 M/mm3 (4.6-6.20); Red Cell Distribution Width 18.2 % (11.5-14.5)
[2022-12-24 06:49] LABS: Anisocytosis 1+ (NORMAL); Atypical Lymphocytes Present; Basophilic Stippling 1+ (NORMAL); Hypochromasia 2+ (NORMAL); Platelet Estimate Decreased (Adequate); Schistocytes None Seen (NORMAL)
[2022-12-24 07:06] LABS: Estimated CRCL calculation 148 ml/min; Estimated Glomerular Filt Rate > 60; Magnesium 1.6 mg/dL (1.6-2.3)
[2022-12-24 08:15] VITALS: PULSE 75; RESP 18; O2SAT 98
[2022-12-24] MEDS: FERROUS SULFATE 324 MG TABLET PO (08:17)
[2022-12-24] MEDS: FAMOTIDINE 20 MG TABLET PO (08:18)
[2022-12-24] MEDS: FOLIC ACID 1 MG TABLET PO (08:18)
[2022-12-24] MEDS: DULoxetine HCL 30 MG CAPSULE.DR PO (08:18)
[2022-12-24] MEDS: MAGNESIUM OXIDE 400 MG TABLET PO (08:18)
[2022-12-24 08:20] LABS: Glucose Point of Care 245 mg/dl (65-105)
[2022-12-24] MEDS: POTASSIUM CHLORIDE 10 MEQ TABLET.ER PO (08:20)
[2022-12-24] MEDS: CYANOCOBALAMIN 500 MCG TABLET PO (08:20)
[2022-12-24] MEDS: amLODIPine BESYLATE 5 MG TABLET 10 MG PO (08:20)
[2022-12-24] MEDS: MULTIVITAMINS THERAPEUTIC TAB (*BKC) 1 TABLET PO (08:20)
[2022-12-24] MEDS: MICONAZOLE NITRATE 2% CREAM 30 GM TUBE 1 APPLIC TOPICAL (08:21)
[2022-12-24] MEDS: MUPIROCIN 2% OINT 22 GM TUBE 1 APPLIC TOPICAL (08:21)
[2022-12-24] MEDS: INSULIN ASPART (*BKC) 100 UNITS/ML SUB-Q ×3 (08:29→17:33)
[2022-12-24] MEDS: INSULIN GLARGINE (*BKC) 100 UNITS/ML 35 UNITS SUB-Q ×2 (08:30→17:32)
--- NOTE | 2022-12-24 11:46 | PM.DS ---
DS: Admitting Diagnosis Discharge Date December 24, 2022 Admitting Diagnosis UTI DS: Discharge Diagnosis Discharge Diagnosis (1) Pancytopenia: Code(s): D61.818 - Other pancytopenia Status: Acute Assessment and Plan: patient with hx of Hodgkin lymphoma presented with anemia with a hemoglobin of 6, patient denies any any bleeding or bruising, 4 units of PRBC being transfused. Hemoglobin stable now (2) Hodgkin lymphoma: Code(s): C81.90 - Hodgkin lymphoma, unspecified, unspecified site Status: Acute Assessment and Plan: The patient stated he is undergoing chemotherapy and that he will see a new supervisor erection shop oncologist at [facility] this next week. (3) Hypertension: Code(s): I10 - Essential (primary) hypertension Status: Acute Assessment and Plan: Continue with amlodipine and doxepin. (4) Diabetic foot ulcer: Code(s): E11.621 - Type 2 diabetes mellitus with foot ulcer; L97.509 - Non-pressure chronic ulcer of other part of unspecified foot with unspecified severity Status: Acute Assessment and Plan: Blood cultures negative so far. Wound culture growing Staph aureus. Discontinue cefepime and Flagyl and continue vancomycin. Wound culture growing MRSA sensitive to vancomycin and Bactrim. Continue vancomycin for now. Possible discharge tomorrow with oral Bactrim once urine cultures are finalized to cover both the wound and urine infection Wound care consult was placed. (5) DM2 (diabetes mellitus, type 2): Code(s): E11.9 - Type 2 diabetes mellitus without complications Status: Acute Assessment and Plan: Accu-Cheks AC and HS with sliding scale insulin. (6) Hyperlipidemia: Code(s): E78.5 - Hyperlipidemia, unspecified Status: Acute Assessment and Plan: continue with atorvastatin. (7) UTI (urinary tract infection): Code(s): N39.0 - Urinary tract infection, site not specified Status: Acute Assessment and Plan: Urine culture pending. Continue IV Rocephin for now. May be discharged on oral Bactrim if urine culture shows bacteria sensitive to Bactrim DS: Summary Hospital Course Hospital Course: Admitted for UTI cellulitis and history of lymphoma. Patient's, follow up with his oncologist for his. Wound infection and UTI be treated with Bactrim on discharge. Time Spent with Patient Time attestation: Total time spent providing and/or coordinating discharge services: Exam Narrative: Morbidly obese Patient is comfortable, NAD HEENT: eyes are clear and none icteric LUNGS: Normal respiratory effort ABD: Obese distended Lower extremities: no edema SKIN: nonjaundiced Neuro: grossly intact. DS: Data Data Completed and Pending Labs on day of discharge: Labs from last 24 hours 12/24/22 12/24/22 12/23/22 08:14 05:29 20:55 WBC 3.0 L RBC 2.25 L Hgb 7.4 L Hct 23.5 L MCV 104.4 H MCH 32.9 MCHC 31.5 L RDW 18.2 H Plt Count 94 L MPV 11.1 H Immature Gran % (Auto) 1.0 H Neut % (Auto) 36.5 L Lymph % (Auto) 35.1 [place] % (Auto) 27.4 H Eos % (Auto) 0.0 Baso % (Auto) 0.0 L Lymph # (Auto) 1.05 [place] # (Auto) 0.8 H Eos # (Auto) 0.0 Baso # (Auto) 0.0 Abs Immat Gran (auto) 0.03 Absolute Neuts (auto) 1.1 L Absolute Nucleated RBC 0.0 Nucleated RBC % 0.0 Atypical Lymphocytes Present Platelet Estimate Decreased % Immature Plt Fraction 5.7 Hypochromasia 2+ Basophilic Stippling 1+ Anisocytosis 1+ Schistocytes None seen Creatinine 0.80 Estim Creat Clear Calc 148 Estimated GFR > 60 POC Capillary Glucose 245 H 272 H Magnesium 1.6 12/23/22 12/23/22 17:09 11:55 WBC RBC Hgb Hct MCV MCH MCHC RDW Plt Count MPV Immature Gran % (Auto) Neut % (Auto) Lymph % (Auto) [place] % (Auto) Eos % (Auto) Baso % (Auto) Lymph # (Auto) [place] # (Auto) Eos # (A
[2022-12-24 12:39] LABS: Glucose Point of Care 252 mg/dl (65-105)
[2022-12-24 13:35] LABS: EDCOVIDSCREEN Negative (Negative)
[2022-12-24 14:00] VITALS: BP 127/83; PULSE 76; RESP 18; TEMP 37.2; O2SAT 98
[2022-12-24] MEDS: ACETAMINOPHEN 325 MG TABLET 650 MG PO (14:53)
[2022-12-24] MEDS: HEPARIN SODIUM LOCK FLUSH 500 UNITS/5 ML SYRINGE IV PUSH (15:26)
[2022-12-24 17:17] LABS: Glucose Point of Care 240 mg/dl (65-105)
[2022-12-24 20:02] LABS: Haptoglobin 9 mg/dL (43-212)
== END 2022-12-24 17:45 | DRG 660 ==
LOC: ANHED 15:20 → ANH3MED 18:40
PROVIDERS: Family Medicine; Nurse Practitioner; Admitting Provider Hospitalist; Emergency Provider Physician Assistant; PCP Hospitalist; Visit Provider Chiropractor
DX: D61.818 Other pancytopenia (principal); C81.90 Hodgkin lymphoma, unspecified, unspecified site; E11.621 Type 2 diabetes mellitus with foot ulcer; L97.529 Non-pressure chronic ulcer of other part of left foot with unspecified severity; L03.116 Cellulitis of left lower limb; E11.628 Type 2 diabetes mellitus with other skin complications; B95.62 Methicillin resistant Staphylococcus aureus infection as the cause of diseases classified elsewhere; E78.5 Hyperlipidemia, unspecified; I10 Essential (primary) hypertension; Z20.822 Contact with and (suspected) exposure to COVID-19; Z87.442 Personal history of urinary calculi; Z79.4 Long term (current) use of insulin; Z79.84 Long term (current) use of oral hypoglycemic drugs; Z74.01 Bed confinement status
CPT/HCPCS: 36415; 36430; 73630; 80053; 80202; 81001; 82565; 82948; 83010; 83735; 85014; 85018; 85025; 85055; 85610; 85730; 86850; 86860; 86870; 86880; 86900; 86901; 86902; 86922; 86970; 86971; 86972; 86978; 87040; 87070; 87086; 87088; 87147; 87181; 87186; 87205; 87426; 96365; 96366; 96367; 96375; 96376; 99285; A9270; C9803; G0378; G0379; J0692; J0696; J1815; J3370; J3475; J7050; P9016

== ENCOUNTER 2022-12-29 16:18 | Observation (INO) | payer OTHER, SELFPAY ==
--- NOTE | ~2022-12-29 | XR_ITS ---
EXAMINATION: XR chest 1V portable INDICATION: Port placement TECHNIQUE: Portable AP chest at 1615 hours COMPARISON: None available FINDINGS: A right internal jugular Port-A-Cath ends with its tip in the proximal superior vena cava. The lungs are free of acute opacities. No pleural effusion or pneumothorax. The cardiomediastinal jennifer houette is normal. IMPRESSION: 1. Right internal jugular Port-A-Cath ending with its tip in the proximal superior vena cava. No pneu mothorax. Reviewed, dictated and finalized at location F. IMPRESSION: 1. Right internal jugular Port-A-Cath ending with its tip in the proximal super ior vena cava. No pneumothorax.
--- NOTE | ~2022-12-29 | XR_ITS ---
EXAMINATION: XR foot RT 2V DATE: 01/01/2023 14:25 INDICATION: Right foot wound. TECHNIQUE: 2 views of right foot on 3 radiographs were obtained. 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 No fracture. 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 There a re enthesophytes at the posterior and plantar aspects of calcaneal tuberosity. IMPRESSION: 1. No specific evidence of osteomyelitis. Reviewed, dictated and finalized at location A.
[2022-12-29 16:25] VITALS: BP 119/65; PULSE 86; RESP 16; TEMP 36.9; O2SAT 100
[2022-12-29 16:30] VITALS: BP 110/58; PULSE 87; RESP 16; O2SAT 99
[2022-12-29 17:00] VITALS: BP 111/63; PULSE 81; RESP 16; O2SAT 100
[2022-12-29 17:13] LABS: Hematocrit 25.6 % (42.0-52.0); Hemoglobin 7.8 g/dL (14.0-18.0); Immature Granulocyte Absolute 0.11 K/mm3 (0.00-0.031); Immature Granulocyte Percent A 3.7 % (0-0.5); Immature Platelet Fraction Pct 5.1 % (0.9-11.2); Lymphocytes Percent Auto 27.1 % (18.3-44.2); Mean Corpuscular HGB Conc 30.5 g/dl (32-36); Mean Corpuscular Hemoglobin 32.4 pg (26-34); Mean Corpuscular Volume 106.2 fl (80-100); Monocytes Absolute Auto 0.7 K/mm3 (0.1-0.6); Monocytes Percent Auto 23.7 % (2.6-8.5); Neutrophils Absolute Auto 1.3 K/mm3 (1.3-6.7); Neutrophils Percent Auto 45.5 % (45.5-73.1); Platelet Count Result 85 k/mm3 (150-375); Red Blood Count 2.41 M/mm3 (4.6-6.20); Red Cell Distribution Width 16.7 % (11.5-14.5)
[2022-12-29 17:22] LABS: INR 1.1; Prothrombin Time 14.7 Seconds (11.1-14.7)
[2022-12-29 17:29] LABS: Alanine Aminotransferase 15 U/L (6-50); Albumin Level 2.8 g/dL (3.5-5.1); Alkaline Phosphatase 75 U/L (38-126); Anion Gap 4 mmol/L (8-16); Aspartate Amino Transferase 20 U/L (17-59); Bilirubin,Total 0.7 mg/dL (0.2-1.3); Blood Urea Nitrogen 14 mg/dL (9-20); Calcium 7.5 mg/dL (8.4-10.2); Carbon Dioxide 29 mmol/L (22-30); Chloride 103 mmol/L (98-107); Estimated CRCL calculation 120 ml/min; Estimated Glomerular Filt Rate > 60; Glucose 84 mg/dL (65-110); Potassium 3.9 mmol/L (3.4-5.0); Sodium 136 mmol/L (137-145)
[2022-12-29 17:35] LABS: Macrocytosis 1+ (NORMAL); Platelet Estimate Decreased (Adequate)
[2022-12-29 17:36] LABS: Anisocytosis 1+ (NORMAL); Schistocytes None Seen (NORMAL)
--- NOTE | 2022-12-29 17:41 | ED.GENADULT ---
HPI - General Adult General Chief complaint: Recheck/Abnormal Lab/Rx <Tam Hampton PA-C - Last Filed: 12/30/22 01:49> Stated complaint: ABN labs <RAYSA Palencia Last Filed: 12/30/22 01:49> Time Seen by Provider: 12/29/22 16:53 <Tam Hampton PA-C - Last Filed: 12/30/22 01:49> Source: patient <RAYSA Palencia Last Filed: 12/30/22 01:49> Mode of arrival: ambulatory <RAYSA Palencia Last Filed: 12/30/22 01:49> Limitations: no limitations <RAYSA Palencia Last Filed: 12/30/22 01:49> History of Present Illness HPI narrative: This is a 62-year-old male who presents to the ED from [facility] via EMS for chief complaint of lightheadedness and concern for low hemoglobin. He states he has had low hemoglobin several times over the last year. He has a history of Hodgkin's lymphoma and is being worked up by a [facility] cancer specialist. States he was admitted to this hospital over a week ago for blood transfusions. Today he states he has had lightheadedness for the past few days so they ordered a CBC this morning at his detention. States his hemoglobin is 6.4 at the detention. Denies any epistaxis, hemoptysis, GI bleeding, dark stools, abdominal pain, chest pain, shortness of breath. Denies LOC. Patient is bedbound due to long history of spinal issues, chronic leg weakness. States his Hodgkin's lymphoma is in remission. He is scheduled to see a new oncologist in 2 days. <RAYSA Palencia Last Filed: 12/30/22 01:49> Related Data Home medications: Home Medications Medication Instructions Recorded Confirmed Adult One Daily Multivitamin 1 tab-cap PO DAILY 12/19/22 12/29/22 acetaminophen 325 mg tablet 650 mg PO Q4H PRN Pain (Scale 12/19/22 12/29/22 (Tylenol) Score 1-3) amlodipine 10 mg tablet 10 mg PO DAILY 12/19/22 12/29/22 amoxicillin 875 mg-potassium 1 tablet PO BID 12/19/22 12/29/22 clavulanate 125 mg tablet atorvastatin 40 mg tablet 40 mg PO HS 12/19/22 12/29/22 bisacodyl 10 mg rectal suppository 10 mg RECTAL DAILY PRN Constipation 12/19/22 12/29/22 calcium carbonate 200 mg calcium 200 mg PO BID PRN Heartburn 12/19/22 12/29/22 (500 mg) chewable tablet (Tums) cyanocobalamin (vitamin B-12) 500 500 mcg PO DAILY 12/19/22 12/29/22 mcg tablet diphenhydramine HCl 25 mg capsule 25 mg PO Q6H PRN Itching 12/19/22 12/29/22 doxepin 25 mg capsule 25 mg PO HS 12/19/22 12/29/22 duloxetine 30 mg capsule,delayed 30 mg PO DAILY 12/19/22 12/29/22 release ergocalciferol (vitamin D2) 1,250 50,000 unit PO DAILY 12/19/22 12/29/22 mcg (50,000 unit) capsule famotidine 20 mg tablet 20 mg PO BID 12/19/22 12/29/22 ferrous sulfate 325 mg (65 mg 325 mg PO DAILY 12/19/22 12/29/22 iron) tablet fluticasone propionate 50 1 spray intranasal DAILY 12/19/22 12/29/22 mcg/actuation nasal spray,suspension folic acid 1 mg tablet 1 mg PO DAILY 12/19/22 12/29/22 insulin glargine 100 unit/mL 35 unit subcut BID 12/19/22 12/29/22 subcutaneous solution insulin lispro 100 unit/mL 20 unit subcut TIDWMEAL 12/19/22 12/29/22 subcutaneous pen ipratropium 0.5 mg-albuterol 3 mg 3 ml inhalation Q4H PRN Shortness 12/19/22 12/29/22 (2.5 mg base)/3 mL nebulization Of Breath Or Wheezing soln magnesium oxide 400 mg (241.3 mg 400 mg PO DAILY 12/19/22 12/29/22 magnesium) tablet melatonin 3 mg tablet 3 mg PO HS PRN Sleep 12/19/22 12/29/22 metformin 500 mg tablet 500 mg PO BID 12/19/22 12/29/22 nystatin 100,000 unit/gram topical 1 applic topical BID 12/19/22 12/29/22 cream polyethylene glycol 3350 17 17 g PO DAILY 12/19/22 12/29/22 gram/dose oral powder (Miralax) potassium chloride 10 mEq 10 meq PO BID 12/19/22 12/29/22 tablet,extended release (Klor-Con) mupirocin 2 % topical ointment 1 applic topical BID 12/29/22 12/29/22 <Tam Hampton PA-C - Last Filed: 12/30/22 01:49> Allergies/adverse reactions: Allergies Allergy/AdvReac Type Severity R
--- NOTE | 2022-12-29 17:45 | ECG_ITS ---
Measurements Intervals [place] Rate: 91 P: -5 NC: 132 QRS: -3 QRSD: 101 T: 60 QT: 368 QTc: 454 Interpretive Statements SINUS RHYTHM WITH OCCASIONAL SUPRAVENTRICULAR PREMATURE COMPLEXES NO PREVIOUS ECG AVAILABLE FOR COMPARISON Electronically Signed On 12-30-2022 14:08:30 CDT by Gian Reeder M.D.
[2022-12-29 18:00] VITALS: BP 123/97; PULSE 84; RESP 16; O2SAT 100
[2022-12-29] MEDS: SODIUM CHLORIDE 0.9% IV 1,000 ML 999 ML IV CONT (18:10)
[2022-12-29 19:31] LABS: Hematocrit 21.5 % (42.0-52.0)
[2022-12-29 19:52] LABS: Hemoglobin 6.7 g/dL (14.0-18.0)
--- NOTE | 2022-12-29 21:08 | PM.IMHP ---
H&P: HPI History of Present Illness Date/Time: 12/29/22 21:08 Chief Complaint: Dizziness Narrative: This is a 62 yo male with PMHx significant for Morbid Obesity, Hodgkin lymphoma, [facility] at [facility], comes via EMS due to lightheadedness, has been worked up for this at outside facility the concern is for anemia a blood work revealed a hemoglobin of 6.7 and a hematocrit of 21, patient has received multiple blood transfusions in the past, recently denies ani hematemesis, coffee ground emesis, BRBPR or melena, has been eating welll, denies any n/v/diarrhea, patient is bed bound/wheel chair bound.Patient is being placed in observation for blood transfusion states that in the past was hard to find blood for transfusion due to multiple antibodies build up due to recurrent use of blood transfusion. Review of Systems Review of Systems: dizziness. Constitutional: Constitutional: Denies chills, Denies fever(s), Denies malaise, Denies night sweats, Denies poor appetite and Reports weakness Eyes: Eyes: Denies change in vision ENT: Denies dysphagia and Denies odynophagia Cardiovascular: Cardiovascular: Denies chest pain, Reports leg edema, Reports lightheadedness and Denies radiating jaw, neck or arm pain Respiratory: Respiratory: Denies cough, Denies excessive phlegm production and Denies dyspnea Gastrointestinal: Gastrointestinal: Denies abdominal pain, Denies melena, Denies hematochezia, Denies coffee ground emesis, Denies dyspepsia, Denies heartburn, Denies diarrhea, Denies nausea and Denies vomiting Genitourinary: Genitourinary: Reports other (suprapubic catheter) Musculoskeletal: Musculoskeletal: Reports back pain Integumentary/Breasts: Skin/Breast: Reports wounds (sacral) Psychiatric: Psychiatric: Reports no additional psychiatric complaints and Reports as per HPI Endocrine: Endocrine: Denies cold intolerance, Denies flushing, Denies heat intolerance, Denies polyphagia, Denies polydipsia and Denies palpitations Hematologic/Lymphatic: Hematologic/Lymphatic: Reports no additional hematologic/lymphatic complaints and Reports as per HPI Allergic/Immunologic: Allergic/Immunologic: Reports no additional allergic/immunologic complaints and Reports as per HPI PMFSH Past Medical History Medical History (Updated 12/30/22 @ 02:59 by Malinda Alva MD) Chronic indwelling Murillo catheter Diabetic foot ulcer DM2 (diabetes mellitus, type 2) History of kidney stones Hodgkin lymphoma Hyperlipidemia Hypertension Port-A-Cath in place Surgical History Surgical History (Updated 12/20/22 @ 02:23 by Corinne Griffin NP) History of renal stent History of surgery on lower extremity repair of right thigh muscle. Family History Family History Father Acute myocardial infarction Congestive heart failure Diabetes mellitus Hypertension Mother Acute myocardial infarction Cerebrovascular accident Congestive heart failure Diabetes mellitus Hypertension Sibling Asthma Father Asthma Daughter Asthma Social History Social History (Updated 12/20/22 @ 02:24 by Corinne Griffin NP) Social History: the patient is and is disabled. He has 3 children. He resides at [facility]. he is a former smoker. Code status full code Smoking packs per day: 1.5 Smoking cigarettes per day: 30.0 Years smoked: 17 Smoking pack-years: 25.50 Smoking status: Former smoker Alcohol intake: never Substance use: never Lack of Transportation: No Lack of Food: Never True Current Housing: I Have Housing Concerned About Future Housing: No Difficulty Paying Gas/Electric Bills: No Difficulty Paying for Meds: No Currently Unemployed: No Education: Grade School Difficulty w/ Childcare or Family Care: No Spiritual care concerns: No Meds Home Medications and Allergies Home Medications Medication Instructions Re
[2022-12-29 22:14] VITALS: BP 113/62; RESP 18; O2SAT 98
[2022-12-29 22:33] VITALS: BP 110/62; PULSE 90; RESP 20; TEMP 37; O2SAT 100; BMI 51.9
--- NOTE | 2022-12-29 22:45 | ADMGEN ---
This patient, John Tony, was admitted to Medical Room 253-. Patient/family oriented to hospital policies and general routines including ID bracelet, bed and alarms, visiting hours, pain management, procedures, bathroom and other care routines, personal items, smoking policy, room service/diet, and visiting hours. Information on how to activate the Rapid Response Team has been discussed. Patient/Family are encouraged to report perceived risks to care and to ask questions if they do not understand what they are told or what they should do.
[2022-12-30] VITALS (12 sets, daily range): BP systolic 110–164; BP diastolic 51–76; PULSE 77–89; RESP 14–20; TEMP 36.3–36.9; O2SAT 96–100
--- NOTE | 2022-12-30 02:19 | PC.NURSE ---
Patient is declining nursing staff replacing his schwartz catheter at this time. He states it is possibly too difficult of a placement for nursing staff.
[2022-12-30] MEDS: CENTRAL LINE FLUSH 10 ML IV PUSH ×3 (06:10→22:34)
[2022-12-30] MEDS: SODIUM CHLORIDE 0.9% IV 250 ML 30 ML IV CONT ×2 (08:22→16:30)
--- NOTE | 2022-12-30 12:03 | PM.IMPN ---
Progress Note: A&P Assessment and Plan (1) Symptomatic anemia: Code(s): D64.9 - Anemia, unspecified Status: Acute Assessment and Plan: h/o hodgkin's lymphoma. last chemotherapy round 7 years ago per patient. He has previously been treated by Dr. Greene from [facility]. He is scheduled to seen a new provider, Dr. Sutherland, with [facility] however, he has not yet been evaluated. Hgb 6.4 at the long term, repeat Hgb 7.8 initially, but repeat 6.7. Given 1 unit PRBC upon admission. 12/30 Hgb repeat 6.8 and additional 2 units PRBC ordered. Patient admitted less than 1 week ago and required 4 units PRBC during that admission. He also endorses in the past month multiple blood transfusions. He denies melena, hematochezia or hematemesis. consult hematology/oncology for recommendations. Patient may benefit from Epogen injections. Iron studies not obtained prior to transfusions and would not be accurate. Continue iron, folic acid and B12 supplements. (2) Diabetic foot ulcer: Code(s): E11.621 - Type 2 diabetes mellitus with foot ulcer; L97.509 - Non-pressure chronic ulcer of other part of unspecified foot with unspecified severity Status: Acute Assessment and Plan: Patient recently admitted to this facility and treated with IV antibiotics for diabetic foot wound. Wound culture showed MRSA growth and he was discharged on Bactrim to continue for 10 more days (dc'd 12/24/22). 01/20/23 Foot x-ray suggestive of osteomyelitis. MRI unable to accommodate patient's weight. Check CT right foot r/o osteomyelitis. continue local wound care Wound care consulted and appreciate recommendations. (3) Chronic indwelling Murillo catheter: Code(s): Z97.8 - Presence of other specified devices Status: Chronic Assessment and Plan: Chronic, continue catheter care (4) Port-A-Cath in place: Code(s): Z95.828 - Presence of other vascular implants and grafts Status: Chronic Assessment and Plan: Port-a-cath care (5) Hodgkin lymphoma: Code(s): C81.90 - Hodgkin lymphoma, unspecified, unspecified site Status: Chronic Assessment and Plan: Patient awaiting evaluation at [facility] (6) Pancytopenia: Code(s): D61.818 - Other pancytopenia Status: Chronic Assessment and Plan: Secondary to above. (7) Morbid obesity with BMI of 50.0-59.9, adult: Code(s): E66.01 - Morbid (severe) obesity due to excess calories; Z68.43 - Body mass index [BMI] 50.0-59.9, adult Status: Chronic Assessment and Plan: Calorie restricted diet. Brandon-bed Plan CODE STATUS: FULL CODE Discharge disposition: from [facility]. Time Spent With Patient Time with patient: 25 - 35 minutes Subjective Date/time seen: 12/30/22 12:03 Interval history: He reports concern for his right foot wound. He states he was told it was osteomyelitis at 1 point but then found to have MRSA infection when he was discharged on Bactrim. He denies fevers, chills, night sweats, SOB, chest pain, urticaria, or pruritus. He is to see Dr. Aguilera with [facility] at some point but is unsure when this appointment is scheduled. His previous oncologist was with [facility]. Review of Systems Review of Systems: All systems reviewed & are unremarkable except as noted in HPI and below Exam Narrative: General: No acute distress. Morbidly obese older adult male lying in bed. Mental Status/Psych: Awake, alert and oriented x4 with clear speech. Pleasant and cooperative. Skin: pale, warm, and dry. hemosiderin staining BLE. Right fourth-fifth metatarsal region with open ulceration with yellow slough noted. Multiple scattered healed abrasions BLE and feet. Dry, cracked heels. Port right upper chest. HEENT: Normocephalic. Sclera is non-icteric. Pupils equal and round. Oral mucosa pink and moist. Neck: No JVD. Heart: S1 and S2 regular
[2022-12-30 12:41] LABS: Glucose Point of Care 225 mg/dl (65-105)
[2022-12-30] MEDS: INSULIN ASPART (*BKC) 100 UNITS/ML 10 UNITS SUB-Q ×2 (12:43→17:20)
[2022-12-30] MEDS: INSULIN ASPART (*BKC) 100 UNITS/ML SUB-Q (12:44)
[2022-12-30] MEDS: SULFAMETHOXAZOLE/TRIMETHOPRIM 800/160 MG DS TABLET 1 TAB PO ×2 (13:12→22:34)
[2022-12-30] MEDS: COLLAGENASE OINT 30 GM TUBE 1 APPLIC TOPICAL (13:15)
[2022-12-30 15:07] LABS: Immature Platelet Fraction Pct 4.6 % (0.9-11.2); Mean Corpuscular HGB Conc 30.9 g/dl (32-36); Mean Corpuscular Hemoglobin 32.7 pg (26-34); Mean Corpuscular Volume 105.8 fl (80-100); Platelet Count Result 97 k/mm3 (150-375); Red Blood Count 2.08 M/mm3 (4.6-6.20); Red Cell Distribution Width 16.8 % (11.5-14.5); White Blood Count 2.6 K/mm3 (4.5-10.0)
[2022-12-30 15:10] LABS: Hemoglobin 6.8 g/dL (14.0-18.0)
[2022-12-30 17:11] LABS: Glucose Point of Care 182 mg/dl (65-105)
[2022-12-30] MEDS: INSULIN GLARGINE (*BKC) 100 UNITS/ML 35 UNITS SUB-Q (17:20)
[2022-12-30] MEDS: FAMOTIDINE 20 MG TABLET PO (17:20)
[2022-12-30] MEDS: MICONAZOLE NITRATE 2% CREAM 30 GM TUBE 1 APPLIC TOPICAL (17:21)
--- NOTE | 2022-12-30 18:39 | PDONCCN ---
HPI - Date of Consult Date/Time: 12/30/22 18:39 Requesting Physician: Malinda Alva MD Primary Care Provider: Wayne Johns MD - Consult Narrative Reason for consult: Pancytopenia Narrative: John Tony is a 62 year old male with morbid obesity and history of lymphoma status post right groin lymph node biopsy done 7 year ago in [facility] and . He received chemotherapy by Dr. Ramona eagle at that time. Patient currently reside at [facility] brought into the hospital with lightheadedness and dizziness and blood workup showed hemoglobin of 6.7. Patient received multiple transfusions in the past. He denies any bleeding and bruising. He has bilateral foot infection. According to the patient he received IV treatment for lymphoma about 4-6 weeks ago in [place] likely Rituxan therapy. He informed me that his bone marrow biopsy at the time of diagnosis came back negative for lymphoma in his lymphoma was early stage. Labs also showed WBC count of 2.6 [place]CV [place] 105 [place] [id number]. Kidney function is normal and liver enzymes are also normal. Review of Systems - Review of Systems All systems reviewed & are unremarkable except as noted in HPI and bel - Neurologic Reports weakness PMFSH Medical History: Medical History (Last Updated 12/20/22 @ 02:36 by Corinne Griffin NP) Chronic indwelling Murillo catheter Diabetic foot ulcer DM2 (diabetes mellitus, type 2) History of kidney stones Hodgkin lymphoma Hyperlipidemia Hypertension Port-A-Cath in place Surgical History: Surgical History (Last Updated 12/20/22 @ 02:23 by Corinne Griffin NP) History of renal stent History of surgery on lower extremity repair of right thigh muscle. Family History: Family History (Last Reviewed 12/29/22 @ 23:15 by John Mayo RN) Father Acute myocardial infarction Congestive heart failure Diabetes mellitus Hypertension Mother Acute myocardial infarction Cerebrovascular accident Congestive heart failure Diabetes mellitus Hypertension Sibling Asthma Father Asthma Daughter Asthma - Social History Social History: Social History (Last Updated 12/20/22 @ 02:24 by Corinne Griffin NP) Alcohol Use: Alcohol intake: never Substance Use: Substance use: never Others: Spiritual care concerns: No Smoking Status: Smoking status: Former smoker Approximate Smoking End Date: 07/1992 Smoking Pack-years: Smoking packs per day: 1.5 Smoking cigarettes per day: 30.0 Years smoked: 17 Smoking pack-years: 25.50 Social Determinants of Health: Has the Lack of Transportation Kept You From Medical Appointments or From Getting Medications?: No Within the Past 12 Months, Were You Worried Whether Your Food Would Run Out Before You Got Money to Buy More?: Never True What is Your Housing Situation Today?: I Have Housing Are You Worried That in the Next 2 Months, You May Not Have Your Own Housing to Live In?: No Do You Have Trouble Paying Your Heating Or Electricity Bill?: No Do You Have Trouble Paying For Medicines?: No Are You Currently Unemployed and Looking for Work?: No Highest Level of Education Completed: Grade School Do You Have Trouble With Childcare or the Care of a Family Member?: No Exam - Vital Signs Vital Signs - 24 hr 12/29/22 22:14 12/29/22 22:33 12/30/22 05:08 Temperature 37.0 C 36.8 C Pulse Rate 90 83 Respiratory Rate 18 20 18 Blood Pressure 113/62 110/62 110/51 L Pulse Oximetry 98 100 99 Oxygen Delivery 12/30/22 08:09 12/30/22 08:25 12/30/22 09:25 Temperature 36.7 C 36.7 C 36.7 C Pulse Rate 80 80 80 Respiratory Rate 14 14 14 Blood Pressure 115/57 L 129/63 110/57 L Pulse Oximetry 100 100 100 Oxygen Delivery 12/30/22 10:30 12/30/22 11:15 12/30/22 14:00 Temperature 36.3 C L 36.6 C 36.3 C L Pulse Rate 77 82 89 Respiratory Rate 18 14 20 Blood Pressur
[2022-12-30 20:19] LABS: Glucose Point of Care 131 mg/dl (65-105)
[2022-12-30 21:36] LABS: Hematocrit 25.1 % (42.0-52.0); Hemoglobin 7.8 g/dL (14.0-18.0)
[2022-12-30 21:46] LABS: Lactate Dehydrogenase 322 U/L (120-246)
[2022-12-30 22:05] LABS: Iron 116 ug/dL (49-181)
[2022-12-30 22:14] LABS: Percent Iron Saturation 72 % (20-50)
[2022-12-30] MEDS: HYOSCYAMINE SULFATE 0.125 MG TABLET PO (22:33)
[2022-12-30] MEDS: DOXEPIN HCL 25 MG CAPSULE PO (22:34)
[2022-12-30] MEDS: ATORVASTATIN 40 MG TABLET PO (22:34)
[2022-12-31 00:13] LABS: Folic Acid > 20.0 ng/mL (2.76->20)
[2022-12-31 00:30] LABS: Ferritin > 2000.00 ng/mL (11.1-264)
[2022-12-31 01:02] LABS: Glucose Point of Care 171 mg/dl (65-105)
[2022-12-31 05:12] LABS: Hematocrit 23.1 % (42.0-52.0); Hemoglobin 7.4 g/dL (14.0-18.0)
[2022-12-31 05:29] VITALS: BP 120/55; PULSE 79; RESP 18; TEMP 37.1; O2SAT 99
--- NOTE | 2022-12-31 05:58 | PC.NURSE ---
Hold last two ordered units of PRBC if >7.0 hgb per Corinne Griffin.
[2022-12-31 08:09] LABS: Glucose Point of Care 166 mg/dl (65-105)
[2022-12-31] MEDS: FERROUS SULFATE 324 MG TABLET PO (08:26)
[2022-12-31] MEDS: INSULIN ASPART (*BKC) 100 UNITS/ML 10 UNITS SUB-Q ×2 (08:27→13:01)
[2022-12-31] MEDS: amLODIPine BESYLATE 5 MG TABLET 10 MG PO (08:27)
[2022-12-31] MEDS: CENTRAL LINE FLUSH 10 ML IV PUSH ×3 (08:27→21:06)
[2022-12-31] MEDS: DULoxetine HCL 30 MG CAPSULE.DR PO (08:28)
[2022-12-31] MEDS: INSULIN GLARGINE (*BKC) 100 UNITS/ML 35 UNITS SUB-Q ×2 (08:28→17:24)
[2022-12-31] MEDS: FLUTICASONE PROPIONATE 0.05% NA SPR 16 GM BTL (*BKC) 1 SPRAY NASAL (08:28)
[2022-12-31] MEDS: FAMOTIDINE 20 MG TABLET PO ×2 (08:28→17:22)
[2022-12-31] MEDS: FOLIC ACID 1 MG TABLET PO (08:28)
[2022-12-31] MEDS: CYANOCOBALAMIN 500 MCG TABLET PO (08:28)
[2022-12-31] MEDS: SULFAMETHOXAZOLE/TRIMETHOPRIM 800/160 MG DS TABLET 1 TAB PO ×2 (08:29→21:05)
[2022-12-31] MEDS: MICONAZOLE NITRATE 2% CREAM 30 GM TUBE 1 APPLIC TOPICAL ×2 (08:29→17:25)
[2022-12-31] MEDS: MAGNESIUM OXIDE 400 MG TABLET PO (08:29)
[2022-12-31] MEDS: MULTIVITAMINS THERAPEUTIC TAB (*BKC) 1 TABLET PO (08:29)
[2022-12-31] MEDS: HYOSCYAMINE SULFATE 0.125 MG TABLET PO (08:42)
[2022-12-31] MEDS: CALCIUM CARBONATE (TUMS) 500 MG (200 MG ELEMENTAL) PO (09:48)
[2022-12-31 11:43] LABS: Glucose Point of Care 160 mg/dl (65-105)
[2022-12-31] MEDS: COLLAGENASE OINT 30 GM TUBE 1 APPLIC TOPICAL (13:01)
--- NOTE | 2022-12-31 13:56 | PM.IMPN ---
Progress Note: A&P Assessment and Plan (1) Symptomatic anemia: Code(s): D64.9 - Anemia, unspecified Status: Acute Assessment and Plan: h/o hodgkin's lymphoma. last chemotherapy round 7 years ago per patient. He has previously been treated by Dr. Greene from [facility]. He is scheduled to seen a new provider, Dr. Sutherland, with [facility] Oncology however, he has not yet been evaluated. Hgb 6.4 at the group home, 7.8 on arrival. Declined to 6.7 this admission Given a total of 2 units packed RBCs this admission Patient admitted less than 1 week ago and required 4 units PRBC during that admission. He also endorses in the past month multiple blood transfusions. He denies melena, hematochezia or hematemesis. Appreciate hematology/oncology recommendations. Recommend outpatient bone marrow biopsy by his oncologist Iron studies not obtained prior to transfusions and would not be accurate. Continue iron, folic acid and B12 supplements. (2) Diabetic foot ulcer: Code(s): E11.621 - Type 2 diabetes mellitus with foot ulcer; L97.509 - Non-pressure chronic ulcer of other part of unspecified foot with unspecified severity Status: Acute Assessment and Plan: Patient recently admitted to this facility and treated with IV antibiotics for diabetic foot wound. Wound culture showed MRSA growth and he was discharged on Bactrim to continue for 10 more days (dc'd 12/24/22). 12/20/22 Foot x-ray suggestive of osteomyelitis. MRI unable to accommodate patient's weight. CT of the right foot has been ordered to assess for osteomyelitis continue local wound care Wound care consulted and appreciate recommendations. Continue p.o. Bactrim at this time (3) Chronic indwelling Murillo catheter: Code(s): Z97.8 - Presence of other specified devices Status: Chronic Assessment and Plan: Chronic, continue catheter care (4) Port-A-Cath in place: Code(s): Z95.828 - Presence of other vascular implants and grafts Status: Chronic Assessment and Plan: Port-a-cath care (5) Hodgkin lymphoma: Code(s): C81.90 - Hodgkin lymphoma, unspecified, unspecified site Status: Chronic Assessment and Plan: Patient awaiting evaluation at [facility] Oncology (6) Pancytopenia: Code(s): D61.818 - Other pancytopenia Status: Chronic Assessment and Plan: Secondary to above. (7) Morbid obesity with BMI of 50.0-59.9, adult: Code(s): E66.01 - Morbid (severe) obesity due to excess calories; Z68.43 - Body mass index [BMI] 50.0-59.9, adult Status: Chronic Assessment and Plan: Calorie restricted diet. Brandon-bed Subjective Date/time seen: 12/31/22 13:56 Interval history: Date of service: 12/31/2022 John Tony is a 62-year-old male with history of Hodgkin's lymphoma, hypertension, type 2 diabetes mellitus, diabetic foot ulcer who is seen in follow-up for anemia. Patient states that he is feeling all right today. He does endorse weakness and lightheadedness. Denies dizziness. Reports yesterday he had several episodes of diarrhea, however this morning he had a formed stool. He denies any significant abdominal pain. No nausea, vomiting, fever, or chills. Does complain of indigestion. He denies shortness of breath, cough, or chest pain. Review of Systems Review of Systems: All systems reviewed & are unremarkable except as noted in HPI and below Exam Narrative: General: Obese, chronically ill-appearing 62-year-old male, sitting up in bed, comfortable, NARD Neuro: awake, alert and oriented x4, speech clear, no focal neuro deficits noted HEENMT: normocephalic, atraumatic, EOMI, sclerae anicteric, moist oral mucosa Respiratory: clear to auscultation bilaterally, nonlabored breathing Cardio: regular rate, regular rhythm with S1-S2 Abdomen: nondistended, normoactive bowel sounds, soft, nontender to palpation Extremities:
[2022-12-31 14:13] VITALS: BP 137/59; PULSE 83; RESP 22; TEMP 36; O2SAT 99
[2022-12-31 14:49] LABS: Glucose Point of Care 173 mg/dl (65-105)
[2022-12-31 17:17] LABS: Glucose Point of Care 128 mg/dl (65-105)
[2022-12-31] MEDS: DOXEPIN HCL 25 MG CAPSULE PO (21:05)
[2022-12-31] MEDS: ATORVASTATIN 40 MG TABLET PO (21:05)
[2022-12-31 21:19] LABS: Glucose Point of Care 138 mg/dl (65-105)
[2022-12-31 22:00] VITALS: BP 139/58; PULSE 75; RESP 21; TEMP 36.5; O2SAT 100
[2022-12-31 22:10] VITALS: RESP 18
[2023-01-01 05:14] LABS: Hematocrit 23.7 % (42.0-52.0); Hemoglobin 7.4 g/dL (14.0-18.0); Immature Granulocyte Absolute 0.12 K/mm3 (0.00-0.031); Immature Granulocyte Percent A 4.9 % (0-0.5); Immature Platelet Fraction Pct 4.2 % (0.9-11.2); Lymphocytes Absolute Auto 0.71 K/mm3 (0.9-3.2); Lymphocytes Percent Auto 28.7 % (18.3-44.2); Mean Corpuscular HGB Conc 31.2 g/dl (32-36); Mean Corpuscular Hemoglobin 32.2 pg (26-34); Mean Platelet Volume 10.4 fl (7.4-10.4); Monocytes Absolute Auto 0.5 K/mm3 (0.1-0.6); Monocytes Percent Auto 20.6 % (2.6-8.5); Neutrophils Absolute Auto 1.1 K/mm3 (1.3-6.7); Neutrophils Percent Auto 45.8 % (45.5-73.1); Platelet Count Result 99 k/mm3 (150-375); Red Cell Distribution Width 16.4 % (11.5-14.5); White Blood Count 2.5 K/mm3 (4.5-10.0)
[2023-01-01] MEDS: CENTRAL LINE FLUSH 10 ML IV PUSH ×3 (05:16→21:39)
[2023-01-01 05:28] LABS: Alanine Aminotransferase 13 U/L (6-50); Albumin Level 2.8 g/dL (3.5-5.1); Alkaline Phosphatase 72 U/L (38-126); Anion Gap 5 mmol/L (8-16); Aspartate Amino Transferase 20 U/L (17-59); Bilirubin,Total 0.6 mg/dL (0.2-1.3); Blood Urea Nitrogen 13 mg/dL (9-20); Calcium 7.7 mg/dL (8.4-10.2); Carbon Dioxide 27 mmol/L (22-30); Chloride 106 mmol/L (98-107); Estimated CRCL calculation 120 ml/min; Estimated Glomerular Filt Rate > 60; Glucose 97 mg/dL (65-110); Potassium 3.7 mmol/L (3.4-5.0); Sodium 138 mmol/L (137-145)
[2023-01-01 06:08] LABS: Hypochromasia 2+ (NORMAL); Platelet Estimate Decreased (Adequate)
[2023-01-01 06:09] LABS: Schistocytes None Seen (NORMAL)
[2023-01-01 06:25] LABS: Glucose Point of Care 93 mg/dl (65-105)
[2023-01-01 06:44] VITALS: BP 117/66; PULSE 73; RESP 20; TEMP 36.3; O2SAT 100
[2023-01-01 08:00] VITALS: PULSE 73; RESP 20; O2SAT 100
[2023-01-01 08:27] LABS: Glucose Point of Care 107 mg/dl (65-105)
[2023-01-01] MEDS: FLUTICASONE PROPIONATE 0.05% NA SPR 16 GM BTL (*BKC) 1 SPRAY NASAL (08:54)
[2023-01-01] MEDS: INSULIN GLARGINE (*BKC) 100 UNITS/ML 35 UNITS SUB-Q ×2 (08:54→17:11)
[2023-01-01] MEDS: COLLAGENASE OINT 30 GM TUBE 1 APPLIC TOPICAL (08:54)
[2023-01-01] MEDS: MICONAZOLE NITRATE 2% CREAM 30 GM TUBE 1 APPLIC TOPICAL ×2 (08:54→17:12)
[2023-01-01] MEDS: CYANOCOBALAMIN 500 MCG TABLET PO (08:54)
[2023-01-01] MEDS: FERROUS SULFATE 324 MG TABLET PO (08:54)
[2023-01-01] MEDS: MULTIVITAMINS THERAPEUTIC TAB (*BKC) 1 TABLET PO (08:54)
[2023-01-01] MEDS: FOLIC ACID 1 MG TABLET PO (08:55)
[2023-01-01] MEDS: SULFAMETHOXAZOLE/TRIMETHOPRIM 800/160 MG DS TABLET 1 TAB PO ×2 (08:55→21:39)
[2023-01-01] MEDS: polyethylene glycoL 3350 17 GM POWD.PACK PO (08:55)
[2023-01-01] MEDS: DULoxetine HCL 30 MG CAPSULE.DR PO (08:55)
[2023-01-01] MEDS: amLODIPine BESYLATE 5 MG TABLET 10 MG PO (08:55)
[2023-01-01] MEDS: FAMOTIDINE 20 MG TABLET PO ×2 (08:55→17:08)
[2023-01-01] MEDS: MAGNESIUM OXIDE 400 MG TABLET PO (08:55)
[2023-01-01 11:41] LABS: Glucose Point of Care 105 mg/dl (65-105)
--- NOTE | 2023-01-01 13:11 | PM.IMPN ---
Progress Note: A&P Assessment and Plan (1) Symptomatic anemia: Code(s): D64.9 - Anemia, unspecified Status: Acute Assessment and Plan: h/o hodgkin's lymphoma. last chemotherapy 7 years ago per patient. He has previously been treated by Dr. Greene from [facility]. He is scheduled to seen a new provider, Dr. Sutherland, with [facility] Oncology however, he has not yet been evaluated. Hgb 6.4 at the [facility], 7.8 on arrival. Declined to 6.7 this admission Given a total of 2 units packed RBCs this admission Patient admitted less than 1 week ago and required 4 units PRBC during that admission. He also endorses in the past month multiple blood transfusions. He denies melena, hematochezia or hematemesis. Appreciate hematology/oncology recommendations. Recommend outpatient bone marrow biopsy by his oncologist Iron studies not obtained prior to transfusions and would not be accurate. Continue iron, folic acid and B12 supplements. Hgb remaining stable at 7.4 today. Continue to monitor (2) Diabetic foot ulcer: Code(s): E11.621 - Type 2 diabetes mellitus with foot ulcer; L97.509 - Non-pressure chronic ulcer of other part of unspecified foot with unspecified severity Status: Acute Assessment and Plan: Patient recently admitted to this facility and treated with IV antibiotics for diabetic foot wound. Wound culture showed MRSA growth and he was discharged on Bactrim to continue for 10 more days (dc'd 12/24/22). 12/20/22 Foot x-ray from prior admission suggestive of osteomyelitis and pt was appropriately treated as an outpatient. CT and MRI unable to be completed at this facility due to pt weight. Discussed with wound care. No evidence of acute infection at this time. Pt follows with bladder tier at his nursing facility Will obtain foot x-ray for further evaluation to ensure no worsening findings on imaging Continue po Bactrim for now. Plan to discontinue if no new concerning findings on xray Continue local wound care (3) Chronic indwelling Murillo catheter: Code(s): Z97.8 - Presence of other specified devices Status: Chronic Assessment and Plan: Chronic, continue catheter care (4) Port-A-Cath in place: Code(s): Z95.828 - Presence of other vascular implants and grafts Status: Chronic Assessment and Plan: Port-a-cath care (5) Hodgkin lymphoma: Code(s): C81.90 - Hodgkin lymphoma, unspecified, unspecified site Status: Chronic Assessment and Plan: Patient awaiting outpatient evaluation at [facility] Oncology (6) Pancytopenia: Code(s): D61.818 - Other pancytopenia Status: Chronic Assessment and Plan: Secondary to above. (7) Morbid obesity with BMI of 50.0-59.9, adult: Code(s): E66.01 - Morbid (severe) obesity due to excess calories; Z68.43 - Body mass index [BMI] 50.0-59.9, adult Status: Chronic Assessment and Plan: Calorie restricted diet. Brandon-bed Subjective Date/time seen: 01/01/23 13:11 Interval history: Date of service: 01/01/2023 John Tony is a 62-year-old male with history of Hodgkin's lymphoma, hypertension, type 2 diabetes mellitus, diabetic foot ulcer who is seen in follow-up for anemia. He feels okay today. Still complains of weakness. He has some low back pain due to being in an uncomfortable position in bed. Complains of chronic lightheadedness but denies dizziness. No headache. No shortness breath, cough, or chest pain. No bleeding noted. No foot pain, endorses chronic neuropathy. Review of Systems Review of Systems: All systems reviewed & are unremarkable except as noted in HPI and below Exam Narrative: General: Obese, chronically ill-appearing 62-year-old male, sitting up in bed, comfortable, NARD Neuro: awake, alert and oriented x4, speech clear, no focal neuro deficits noted HEENMT: normocephalic, atraumatic, EOMI, sclerae anicteric
[2023-01-01 13:48] VITALS: BP 120/57; PULSE 75; RESP 16; TEMP 36.5; O2SAT 99
[2023-01-01 16:55] LABS: Glucose Point of Care 146 mg/dl (65-105)
[2023-01-01] MEDS: INSULIN ASPART (*BKC) 100 UNITS/ML 10 UNITS SUB-Q (17:11)
[2023-01-01 21:11] LABS: Glucose Point of Care 131 mg/dl (65-105)
[2023-01-01] MEDS: ATORVASTATIN 40 MG TABLET PO (21:39)
[2023-01-01] MEDS: DOXEPIN HCL 25 MG CAPSULE PO (21:39)
[2023-01-01 22:00] VITALS: BP 132/63; PULSE 77; RESP 20; TEMP 36.3; O2SAT 100
--- NOTE | 2023-01-01 23:19 | PC.NURSE ---
Pt refusing to turn with staff assist or allow the continuous bed turn to be activated. Pt is constantly positioned on his back and has been educated many times on importance of changing positions every two hours especially given the large areas of maceration throughout his posterior. Pt verbalized understanding of education provided and still refused any position change. This nurse and NUTRITION TECHNICIANAmee Braswell will continue to reinforce education and encourage patient to change positions at least every two hours. Pt additionally refused to allow this nurse to apply aloe vesta to macerated areas, but states he may allow it to be applied later during the night.
[2023-01-02 05:22] LABS: Hematocrit 24.4 % (42.0-52.0); Hemoglobin 7.6 g/dL (14.0-18.0); Immature Platelet Fraction Pct 4.9 % (0.9-11.2); Mean Corpuscular HGB Conc 31.1 g/dl (32-36); Mean Corpuscular Hemoglobin 32.6 pg (26-34); Mean Corpuscular Volume 104.7 fl (80-100); Mean Platelet Volume 10.7 fl (7.4-10.4); Platelet Count Result 114 k/mm3 (150-375); Red Blood Count 2.33 M/mm3 (4.6-6.20); Red Cell Distribution Width 16.6 % (11.5-14.5); White Blood Count 3.3 K/mm3 (4.5-10.0)
[2023-01-02 05:47] LABS: Anion Gap 4 mmol/L (8-16); Blood Urea Nitrogen 12 mg/dL (9-20); Calcium 7.6 mg/dL (8.4-10.2); Carbon Dioxide 28 mmol/L (22-30); Chloride 107 mmol/L (98-107); Estimated CRCL calculation 120 ml/min; Estimated Glomerular Filt Rate > 60; Glucose 54 mg/dL (65-110); Potassium 3.6 mmol/L (3.4-5.0); Sodium 139 mmol/L (137-145)
[2023-01-02 06:00] VITALS: BP 113/53; PULSE 75; RESP 20; TEMP 36.4; O2SAT 98
[2023-01-02] MEDS: CENTRAL LINE FLUSH 10 ML IV PUSH ×2 (06:06→13:05)
--- NOTE | 2023-01-02 06:08 | PC.NURSE ---
Addendum entered by Bebeto Machuca RN 01/02/23 06:22: Hypoglycemic protocol was not used as blood sugar was corrected and all POC levels were above critical low. Original Note: Critical result received at 0547 for BG 54. Pt had already called requesting BG spot check at 0517 after labs were drawn , results were 70, pt was given a soda and jose crackers at that time. Pt was rechecked at 0606, result was 94.
[2023-01-02 06:10] LABS: Glucose Point of Care 94 mg/dl (65-105)
[2023-01-02 06:10] LABS: Glucose Point of Care 70 mg/dl (65-105)
[2023-01-02 08:21] LABS: Glucose Point of Care 88 mg/dl (65-105)
[2023-01-02] MEDS: SULFAMETHOXAZOLE/TRIMETHOPRIM 800/160 MG DS TABLET 1 TAB PO (10:05)
[2023-01-02] MEDS: amLODIPine BESYLATE 5 MG TABLET 10 MG PO (10:05)
[2023-01-02] MEDS: MAGNESIUM OXIDE 400 MG TABLET PO (10:05)
[2023-01-02] MEDS: FERROUS SULFATE 324 MG TABLET PO (10:05)
[2023-01-02] MEDS: FAMOTIDINE 20 MG TABLET PO (10:05)
[2023-01-02] MEDS: DULoxetine HCL 30 MG CAPSULE.DR PO (10:05)
[2023-01-02] MEDS: COLLAGENASE OINT 30 GM TUBE 1 APPLIC TOPICAL (10:06)
[2023-01-02] MEDS: CYANOCOBALAMIN 500 MCG TABLET PO (10:06)
[2023-01-02] MEDS: FLUTICASONE PROPIONATE 0.05% NA SPR 16 GM BTL (*BKC) 1 SPRAY NASAL (10:06)
[2023-01-02] MEDS: MICONAZOLE NITRATE 2% CREAM 30 GM TUBE 1 APPLIC TOPICAL (10:06)
[2023-01-02] MEDS: FOLIC ACID 1 MG TABLET PO (10:06)
[2023-01-02] MEDS: MULTIVITAMINS THERAPEUTIC TAB (*BKC) 1 TABLET PO (10:06)
[2023-01-02 11:49] LABS: Glucose Point of Care 109 mg/dl (65-105)
[2023-01-02] MEDS: SIMETHICONE 80 MG TAB.CHEW 160 MG PO (13:04)
[2023-01-02] MEDS: HYOSCYAMINE SULFATE 0.125 MG TABLET PO (13:05)
--- NOTE | 2023-01-02 13:20 | PM.DS ---
DS: Admitting Diagnosis Discharge Date 01/01/2023 Admitting Diagnosis Dizziness DS: Discharge Diagnosis Discharge Diagnosis (1) Symptomatic anemia: Code(s): D64.9 - Anemia, unspecified Status: Acute Assessment and Plan: h/o hodgkin's lymphoma. last chemotherapy 7 years ago per patient. He has previously been treated by Dr. Greene from [facility]. He is scheduled to seen a new provider, Dr. Sutherland, with [facility] Oncology however, he has not yet been evaluated. Hgb 6.4 at the senior care, 7.8 on arrival. Declined to 6.7 this admission Given a total of 2 units packed RBCs this admission Patient admitted less than 1 week ago and required 4 units PRBC during that admission. He also endorses in the past month multiple blood transfusions. He denies melena, hematochezia or hematemesis. Appreciate hematology/oncology recommendations. Recommend outpatient bone marrow biopsy by his oncologist Iron studies not obtained prior to transfusions and would not be accurate. Continue iron, folic acid and B12 supplements. Hgb remaining stable at 7.4 today. Continue to monitor (2) Diabetic foot ulcer: Code(s): E11.621 - Type 2 diabetes mellitus with foot ulcer; L97.509 - Non-pressure chronic ulcer of other part of unspecified foot with unspecified severity Status: Acute Assessment and Plan: Patient recently admitted to this facility and treated with IV antibiotics for diabetic foot wound. Wound culture showed MRSA growth and he was discharged on Bactrim to continue for 10 more days (dc'd 12/24/22). 12/20/22 Foot x-ray from prior admission suggestive of osteomyelitis and pt was appropriately treated as an outpatient. CT and MRI unable to be completed at this facility due to pt weight. Discussed with wound care. No evidence of acute infection at this time. Pt follows with premium cancellation clerk at his nursing facility Will obtain foot x-ray for further evaluation to ensure no worsening findings on imaging Continue po Bactrim for now. Plan to discontinue if no new concerning findings on xray Continue local wound care (3) Chronic indwelling Murillo catheter: Code(s): Z97.8 - Presence of other specified devices Status: Chronic Assessment and Plan: Chronic, continue catheter care (4) Port-A-Cath in place: Code(s): Z95.828 - Presence of other vascular implants and grafts Status: Chronic Assessment and Plan: Port-a-cath care (5) Hodgkin lymphoma: Code(s): C81.90 - Hodgkin lymphoma, unspecified, unspecified site Status: Chronic Assessment and Plan: Patient awaiting outpatient evaluation at [facility] Oncology (6) Pancytopenia: Code(s): D61.818 - Other pancytopenia Status: Chronic Assessment and Plan: Secondary to above. (7) Morbid obesity with BMI of 50.0-59.9, adult: Code(s): E66.01 - Morbid (severe) obesity due to excess calories; Z68.43 - Body mass index [BMI] 50.0-59.9, adult Status: Chronic Assessment and Plan: Calorie restricted diet. Brandon-bed DS: Summary Hospital Course Reason for hospitalization: Dizziness Narrative: This is a 62 yo male with PMHx significant for Morbid Obesity, Hodgkin lymphoma, resides at [facility], comes via EMS due to lightheadedness, has been worked up for this at outside facility the concern is for anemia a blood work revealed a hemoglobin of 6.7 and a hematocrit of 21, patient has received multiple blood transfusions in the past, recently denies ani hematemesis, coffee ground emesis, BRBPR or melena, has been eating welll, denies any n/v/diarrhea, patient is bed bound/wheel chair bound.Patient is being placed in observation for blood transfusion states that in the past was hard to find blood for transfusion due to multiple antibodies build up due to recurrent use of blood transfusion. Hospital Course: h/o hodgkin's lymphoma. last chemotherapy 7 years ago per p
[2023-01-02] MEDS: HEPARIN SODIUM LOCK FLUSH 500 UNITS/5 ML SYRINGE IV PUSH (14:38)
[2023-01-02 15:14] VITALS: BP 114/78; PULSE 80; RESP 19; TEMP 37.2; O2SAT 92
[2023-01-02 15:17] LABS: EDCOVIDSCREEN Negative (Negative)
[2023-01-02 19:22] LABS: Glucose Point of Care 156 mg/dl (65-105)
[2023-01-07 20:53] LABS: Soluble Transferrin Receptor 2.79 mg/L (0.76-1.76)
== END 2023-01-02 17:45 ==
LOC: ANHED 21:22 → ANH2MED 22:26
PROVIDERS: Family Medicine; Internal Medicine Hematology & Oncology; Nurse Practitioner; Nurse Practitioner Family; Admitting Provider Internal Medicine; Emergency Provider Physician Assistant; PCP Hospitalist; Visit Provider Physician Assistant
DX: D64.9 Anemia, unspecified (principal); E11.621 Type 2 diabetes mellitus with foot ulcer; L97.509 Non-pressure chronic ulcer of other part of unspecified foot with unspecified severity; Z96.0 Presence of urogenital implants; Z95.828 Presence of other vascular implants and grafts; C81.90 Hodgkin lymphoma, unspecified, unspecified site; D61.818 Other pancytopenia; E66.01 Morbid (severe) obesity due to excess calories; R53.1 Weakness; E78.5 Hyperlipidemia, unspecified; I10 Essential (primary) hypertension; D72.819 Decreased white blood cell count, unspecified; Z20.822 Contact with and (suspected) exposure to COVID-19; Z68.43 Body mass index [BMI] 50.0-59.9, adult; I49.1 Atrial premature depolarization; Z79.1 Long term (current) use of non-steroidal anti-inflammatories (NSAID); Z79.51 Long term (current) use of inhaled steroids; Z79.4 Long term (current) use of insulin; Z79.84 Long term (current) use of oral hypoglycemic drugs; Z79.899 Other long term (current) drug therapy; Z87.891 Personal history of nicotine dependence; Z83.3 Family history of diabetes mellitus; Z82.49 Family history of ischemic heart disease and other diseases of the circulatory system
CPT/HCPCS: 36415; 36430; 71045; 73620; 80048; 80053; 82607; 82728; 82746; 82948; 83540; 83550; 83615; 84238; 85014; 85018; 85025; 85027; 85055; 85610; 86850; 86860; 86870; 86880; 86900; 86901; 86902; 86922; 86970; 86972; 86978; 87040; 87426; 93005; 96360; 99285; A9270; C9803; G0378; G0379; J1642; J1815; J7030; J7050; P9016

== ENCOUNTER 2023-02-16 23:44 | Inpatient (IN) | payer OTHER, SELFPAY ==
--- NOTE | ~2023-02-16 | US_ITS ---
US right upper quadrant INDICATION: Right upper quadrant pain. Hyperbilirubinemia. PROCEDURE: Realtime right upper abdominal ultrasound. COMPARISON: No prior studies for comparison. FINDINGS: The pancreas is obscured by bowel content. There is hepatomegaly with fatty infiltration o f the liver. There is normal directional flow in the portal vein. Gallbladder contains sludge, stones and is moderately distended with trace pericholecystic fluid. Co mmon bile duct measures 4 mm. No sonographic Moreno's sign. Right renal echotexture is unremarkable. There is trace ascites. IMPRESSION: 1: Cholelithiasis with gallbladder sludge, gallbladder distention and trace pericholecystic fluid. Co nsider cholecystitis in the appropriate clinical setting. 2: Hepatomegaly with fatty infiltration of the liver. Reviewed, dictated and finalized at location A. IMPRESSION: 1: Cholelithiasis with gallbladder sludge, gallbladder distention and trace per icholecystic fluid. Consider cholecystitis in the appropriate clinical setting. 2: Hepatomegaly with fatty infiltration of the liver.
--- NOTE | ~2023-02-16 | XR_ITS ---
Portable chest x-ray Comparison: 12/30/2022 Clinical History: Chest pain Findings: Stable right-sided central venous line. Lungs are clear, without focal consolidation or pl eural effusion. Cardiomediastinal silhouette is stable. Bones and soft tissues are unremarkable. Impression: Clear lungs. Stable support line. Reviewed, dictated and finalized at location . Impression: Clear lungs. Stable support line.
--- NOTE | ~2023-02-16 | US_ITS ---
US renal BI 02/17/2023 18:59 Procedure: Realtime transabdominal ultrasound of the kidneys and bladder. Indication: Acute renal insufficiency Comparison: No prior studies for comparison. Findings: Renal echotexture is normal bilaterally without hydronephrosis, contour deforming mass or r enal calculus. The right kidney measures 14.9 cm and left kidney measures 13.6 cm. Bladder is decompr essed by Murillo catheter. Fatty infiltration of the liver. There is free fluid in the pelvis. Impression: 1: Unremarkable renal ultrasound. Reviewed, dictated and finalized at location A. Impression: 1: Unremarkable renal ultrasound.
[2023-02-16 23:47] VITALS: PULSE 108; RESP 20; TEMP 36.5; O2SAT 99
--- NOTE | 2023-02-16 23:47 | ECG_ITS ---
Measurements Intervals [place] Rate: 105 P: 60 MI: 151 QRS: -3 QRSD: 101 T: 62 QT: 348 QTc: 461 Interpretive Statements SINUS TACHYCARDIA NONSPECIFIC ST & T-WAVE ABNORMALITY- HIGH LATERAL LEADS BORDERLINE ECG COMPARED TO ECG 12/29/2022 18:15:52 [address]CARDIA NOW PRESENT ST-T WAVE ABNORMALITY NOW PRESENT Electronically Signed On 02-17-2023 6:37:29 CDT by Tavo Montes D.O.
[2023-02-16 23:52] VITALS: O2SAT 99
[2023-02-16 23:53] VITALS: PULSE 105
[2023-02-16 23:56] VITALS: BP 66/53; PULSE 105; RESP 13; O2SAT 99
[2023-02-16 23:57] VITALS: O2SAT 100
[2023-02-17] VITALS (22 sets, daily range): BP systolic 101–134; BP diastolic 56–73; PULSE 73–102; RESP 15–22; TEMP 36.2–37.1; O2SAT 97–100; BMI 50.5
--- NOTE | 2023-02-17 00:24 | PC.NURSE ---
Patient is a difficult stick for blood draw. Nursing staff was only able to gather one set of blood cultures. Per Dr. Guzman one set of blood cultures ok.
[2023-02-17] MEDS: CEFEPIME 2 GM/NS 50 ML 2 GM/50 ML BAG IVPB ×2 (00:26→14:18)
[2023-02-17 00:43] LABS: Hematocrit 21.2 % (42.0-52.0); Immature Platelet Fraction Pct 8.4 % (0.9-11.2); Mean Corpuscular HGB Conc 29.2 g/dl (32-36); Mean Corpuscular Hemoglobin 30.1 pg (26-34); Mean Corpuscular Volume 102.9 fl (80-100); Platelet Count Result 80 k/mm3 (150-375); Red Blood Count 2.06 M/mm3 (4.6-6.20); Red Cell Distribution Width 19.2 % (11.5-14.5); White Blood Count 3.5 K/mm3 (4.5-10.0)
[2023-02-17 00:45] LABS: Lactic Acid Reflex 2.9 mmol/L (0.7-2.0)
[2023-02-17 00:45] LABS: INR 1.5; Prothrombin Time 19.4 Seconds (11.1-14.7)
[2023-02-17 00:46] LABS: Partial Thromboplastin Time 44.7 SECONDS (22.3-36.8)
[2023-02-17 00:47] LABS: Alanine Aminotransferase 45 U/L (6-50); Albumin Level 2.3 g/dL (3.5-5.1); Alkaline Phosphatase 401 U/L (38-126); Anion Gap 10 mmol/L (8-16); Aspartate Amino Transferase 97 U/L (17-59); Bilirubin,Total 6.1 mg/dL (0.2-1.3); Blood Urea Nitrogen 14 mg/dL (9-20); Calcium 6.6 mg/dL (8.4-10.2); Carbon Dioxide 21 mmol/L (22-30); Chloride 106 mmol/L (98-107); Estimated CRCL calculation 72 ml/min; Estimated Glomerular Filt Rate 41; Glucose 173 mg/dL (65-110); Lipase 155 U/L (23-300); Potassium 3.5 mmol/L (3.4-5.0); Sodium 137 mmol/L (137-145)
[2023-02-17 00:49] LABS: CRP 6.6 mg/dL (<1.0)
--- NOTE | 2023-02-17 00:54 | ED.CHESTPAIN ---
HPI - Chest Pain General Chief Complaint: Chest Pain Stated Complaint: LOW B/P, CP, HEART ARRYTHMIA History of Present Illness HPI narrative: This is a 63-year-old male, with recent history of Hodgkin's lymphoma, diabetic foot ulcer and diabetes, who is brought in by EMS from his [facility] for chest pain and SVT. Approximately 1 hour prior to arrival, the patient was receiving vancomycin, when he developed moderate chest pressure, rated 6/10. Vital signs were taken the patient was noted tachycardic to the 180s. EMS reports on arrival, the patient appeared to be in SVT with a heart rate of 150 with a blood pressure in the 70s systolic. IV was established and IV fluids were infused. Prior to other intervention, the patient spontaneously converted to sinus tachycardia with improvement of his pressures to the 110s systolic. The patient states his chest pressure has since resolved though he does complain of some paresthesias in the right hand. Related Data Home Medications Medication Instructions Recorded Confirmed acetaminophen 325 mg tablet 650 mg PO Q4H PRN Pain (Scale 12/19/22 02/17/23 (Tylenol) Score 1-3) amlodipine 10 mg tablet 10 mg PO DAILY 12/19/22 02/17/23 atorvastatin 40 mg tablet 40 mg PO HS 12/19/22 02/17/23 bisacodyl 10 mg rectal suppository 10 mg RECTAL DAILY PRN Constipation 12/19/22 02/17/23 calcium carbonate 200 mg calcium 200 mg PO BID PRN Heartburn 12/19/22 02/17/23 (500 mg) chewable tablet (Tums) cyanocobalamin (vitamin B-12) 500 500 mcg PO DAILY 12/19/22 02/17/23 mcg tablet diphenhydramine HCl 25 mg capsule 25 mg PO Q6H PRN Itching 12/19/22 02/17/23 doxepin 25 mg capsule 25 mg PO HS 12/19/22 02/17/23 duloxetine 30 mg capsule,delayed 30 mg PO DAILY 12/19/22 02/17/23 release ergocalciferol (vitamin D2) 1,250 50,000 unit PO WEEKLY 12/19/22 02/17/23 mcg (50,000 unit) capsule ferrous sulfate 325 mg (65 mg 325 mg PO BID 12/19/22 02/17/23 iron) tablet fluticasone propionate 50 1 spray intranasal DAILY 12/19/22 02/17/23 mcg/actuation nasal spray,suspension insulin glargine 100 unit/mL 15 unit subcut BID 12/19/22 02/17/23 subcutaneous solution insulin lispro 100 unit/mL See Rx Instructions .Route .COMPLEX 12/19/22 02/17/23 subcutaneous pen ipratropium 0.5 mg-albuterol 3 mg 3 ml inhalation Q4H PRN Shortness 12/19/22 02/17/23 (2.5 mg base)/3 mL nebulization Of Breath Or Wheezing soln magnesium oxide 400 mg (241.3 mg 400 mg PO DAILY 12/19/22 02/17/23 magnesium) tablet melatonin 3 mg tablet 3 mg PO HS PRN Sleep 12/19/22 02/17/23 metformin 500 mg tablet 500 mg PO BID 12/19/22 02/17/23 nystatin 100,000 unit/gram topical 1 applic topical BID 12/19/22 02/17/23 cream polyethylene glycol 3350 17 17 g PO DAILY PRN Constipation 12/19/22 02/17/23 gram/dose oral powder (Miralax) potassium chloride 10 mEq 10 meq PO BID 12/19/22 02/17/23 tablet,extended release (Klor-Con) epoetin getachew 10,000 unit/mL 10,000 unit subcut WEEKLY 02/17/23 02/17/23 injection solution (Epogen) metronidazole 500 mg tablet See Rx Instructions .Route .COMPLEX 02/17/23 02/17/23 omeprazole 20 mg capsule,delayed 20 mg PO DAILY 02/17/23 02/17/23 release vancomycin 2 gram/500 mL in 0.9 % 2 g IV BID 02/17/23 02/17/23 sodium chloride intravenous Allergies Allergy/AdvReac Type Severity Reaction Status Date / Time aspirin Allergy Hives Verified 12/29/22 23:16 levofloxacin [From Levaquin] Allergy Rash Verified 12/29/22 16:28 Review of Systems Review of Systems: CONSTITUTIONAL: Denies fever, chills, or sweats. CARDIOVASCULAR: Chest pressure denies palpitations, or edema. RESPIRATORY: Denies cough or dyspnea. GASTROINTESTINAL: Suprapubic abdominal pain denies nausea, vomiting, or diarrhea. GENITOURINARY: Denies dysuria or hematuria. SKIN: Denies rash or itching. MUSCULOSKELETAL: Denies back pain, joint pain, or myalgia. NEUROLOGIC: Denies headache, numbness, dizziness, or weakness. PSYCHIATRIC: Denies anxiety or de
[2023-02-17 00:56] LABS: Hemoglobin 6.2 g/dL (14.0-18.0)
[2023-02-17 00:58] LABS: Troponin I < 0.012 ng/mL (0.000-0.034)
[2023-02-17 01:00] LABS: Lymphocytes Absolute Manual 0.87 K/mm3 (1.1-4.5); Monocytes Absolute Manual 0.35 K/mm3 (0.1-0.90); Monocytes Percent Manual 10 % (3-9); Neutrophils Percent Manual 65 % (46-73); Platelet Estimate Decreased (Adequate); Total Cells Counted 100
[2023-02-17 01:01] LABS: Anisocytosis 1+ (NORMAL); Hypochromasia 1+ (NORMAL); Schistocytes None Seen (NORMAL)
[2023-02-17] MEDS: CALCIUM GLUC 2,000 MG/NS 100ML 2,000 MG/100 ML BAG 100 MG IVPB (01:01)
--- NOTE | 2023-02-17 01:23 | PC.NURSE ---
Patient signed consent for blood transfusion. Paperwork is in chart.
[2023-02-17 01:45] LABS: Appearance Urine Turbid (Clear); Bacteria Urine 4+ /hpf; Bilirubin Urine 1+ (Negative); Blood Urine 1+ (Negative); Color Urine Dark Yellow (Yellow); Glucose Urine UA Negative (Negative); Ketones Urine Negative (Negative); Leukocyte Esterase Ur 3+ LEU/UL (Negative); Nitrate Urine Negative (Negative); Non Pathogenic Casts >20; Protein Urine 3+ mg/dL (Negative); RBC Urine 21-50 /hpf (0-2); Specific Grav Ur 1.012 (1.001-1.035); Squamous Epithelial Cell Urine Few /hpf (Few); WBC Urine >100 /hpf; pH Urine >=9.0 (5.0-9.0)
[2023-02-17 02:01] LABS: Add Urine Microscopic? YES
[2023-02-17 02:35] LABS: Hematocrit 21.7 % (42.0-52.0)
[2023-02-17 02:36] LABS: Hemoglobin 6.4 g/dL (14.0-18.0)
[2023-02-17] MEDS: ONDANSETRON INJ 4 MG/2 ML VIAL IV PUSH (02:39)
--- NOTE | 2023-02-17 03:09 | PM.IMHP ---
H&P: HPI History of Present Illness Date/Time: 02/17/23 03:09 Chief Complaint: Altered mental status Narrative: This is a 63-year-old male with past medical history significant for morbid obesity, hypertension, diabetic chronic ulcer, diabetic foot, chronic indwelling Murillo catheter, hypertension, Hodgkin's lymphoma, chronic hemolytic anemia, chronic blood transfusions Port-A-Cath in place. Patient is a assisted resident and was brought for evaluation to the emergency room due to altered mental status, generalized pallor, jaundice, hypotension. Also patient with a pulse in the 100 and 50s to 100 and 80s initially SVT after fluid bolus it showed sinus tachycardia. Patient had been on vancomycin however vanc trough was elevated and vancomycin has been on hold for several days. Here in emergency room patient was found to have numerous WBCs present in the urine, total bilirubin of 6, alk phos 400, creatinine 1.7, vanc trough 58. Review of Systems Review of Systems: Altered mental status, low blood pressure Constitutional: Constitutional: Denies chills, Denies fever(s), Denies night sweats, Denies poor appetite and Reports weakness Eyes: Eyes: Denies change in vision ENT: Denies dysphagia Cardiovascular: Cardiovascular: Denies pedal edema, Denies leg edema and Denies palpitations Respiratory: Respiratory: Denies chest congestion and Denies cough Gastrointestinal: Gastrointestinal: Denies abdominal pain, Denies melena, Denies hematochezia, Denies change in bowel habits, Denies dysphagia, Denies dyspepsia, Denies heartburn, Denies diarrhea, Reports nausea and Denies hematemesis Genitourinary: Genitourinary: Denies dysuria and Denies flank pain Musculoskeletal: Musculoskeletal: Reports back pain Integumentary/Breasts: Skin/Breast: Reports skin ulcer (Right foot ulcer) Neurologic: Reports confusion and Denies focal weakness Psychiatric: Psychiatric: Reports no additional psychiatric complaints and Reports as per HPI Endocrine: Endocrine: Denies deepening of the voice, Denies heat intolerance, Denies increase in ring/shoe/hat size, Denies polyuria and Denies palpitations Hematologic/Lymphatic: Hematologic/Lymphatic: Reports no additional hematologic/lymphatic complaints, Reports as per HPI, Denies easy bleeding, Denies easy bruising and Denies lymphadenopathy Allergic/Immunologic: Allergic/Immunologic: Reports no additional allergic/immunologic complaints and Reports as per HPI [facility] Past Medical History Medical History Chronic indwelling Murillo catheter Diabetic foot ulcer DM2 (diabetes mellitus, type 2) History of kidney stones Hodgkin lymphoma Hyperlipidemia Hypertension Port-A-Cath in place Surgical History Surgical History History of renal stent History of surgery on lower extremity repair of right thigh muscle. Family History Family History Father Acute myocardial infarction Congestive heart failure Diabetes mellitus Hypertension Mother Acute myocardial infarction Cerebrovascular accident Congestive heart failure Diabetes mellitus Hypertension Sibling Asthma Father Asthma Daughter Asthma Social History Social History Social History: the patient is and is disabled. He has 3 children. He resides at [facility]. he is a former smoker. Code status full code Smoking packs per day: 1.5 Smoking cigarettes per day: 30.0 Years smoked: 17 Smoking pack-years: 25.50 Smoking status: Former smoker Alcohol intake: never Substance use: never Lack of Transportation: No Lack of Food: Never True Current Housing: I Have Housing Concerned About Future Housing: No Difficulty Paying Gas/Electric Bills: No Difficulty Pay
[2023-02-17 03:13] LABS: Vancomycin Random 58.2 ug/mL (10-20)
[2023-02-17 03:22] LABS: Troponin I < 0.012 ng/mL (0.000-0.034)
[2023-02-17 03:32] LABS: Reflex Lactic Acid Yes or No Add Lactic
[2023-02-17 04:21] LABS: Lactic Acid 1.3 mmol/L (0.7-2.0)
--- NOTE | 2023-02-17 04:32 | ADMGEN ---
This patient, John Tony, was admitted to IMU Room 204-01. Patient/family oriented to hospital policies and general routines including ID bracelet, bed and alarms, visiting hours, pain management, procedures, bathroom and other care routines, personal items, smoking policy, room service/diet, and visiting hours. Information on how to activate the Rapid Response Team has been discussed. Patient/Family are encouraged to report perceived risks to care and to ask questions if they do not understand what they are told or what they should do.
[2023-02-17 06:43] LABS: Troponin I 0.028 ng/mL (0.000-0.034)
[2023-02-17] MEDS: PIPERACILLN/TAZ 3.375GM/NS50ML 3.375 GM/50 ML BAG IVPB (06:57)
[2023-02-17 07:42] LABS: Glucose Point of Care 150 mg/dl (65-105)
[2023-02-17 08:18] LABS: Alanine Aminotransferase 42 U/L (6-50); Albumin Level 1.9 g/dL (3.5-5.1); Alkaline Phosphatase 331 U/L (38-126); Aspartate Amino Transferase 85 U/L (17-59); Bilirubin Direct 2.1 mg/dL (0-0.3); Bilirubin,Total 5.2 mg/dL (0.2-1.3)
[2023-02-17 11:58] LABS: Glucose Point of Care 138 mg/dl (65-105)
--- NOTE | 2023-02-17 12:02 | P.PNIM_ITS ---
Progress Note: A&P Assessment and Plan (1) Sepsis: Qualifiers: Acute renal failure type: unspecified Sepsis acute organ dysfunction status: with acute organ dysfunction Sepsis type: sepsis due to unspecified or ganism Severe sepsis acute organ dysfunction type: acute renal failure Severe sepsis shock status: with septic shock Qualified Code(s): A41.9 - Sepsis, unspecified organism; R65.21 - Severe sepsis with septic shock; N17.9 - Acute kidney failure, unspecified Code(s): A41.9 - Sepsis, unspecified organism Status: Acute Assessment and Plan: present on admisison with HoTN, tachycardia and lactic acidosis. [place] related to UTI. BCx and UCx collected. On Vancomycin on admission. Zosyn added. Follow up on culture results. change to cefepime (2) SVT (supraventricular tachycardia): Code(s): I47.1 - Supraventricular tachycardia Status: Acute Assessment and Plan: Patient developed chest pain when received Vancomycin infusion and found to have a HR 180 and EKG (by EMS) consistent with SVT. He became HoTN. IV fluids administered and he spontaneously converted to NSR. BP was 66/53 documented here but fluid responsive. Related to Vancomycin toxicity? Vanco can cause HoTN if infused too fast. Check TSH. Add metoprolol if BP remains stable. (3) Chest pain: Code(s): R07.9 - Chest pain, unspecified Status: Acute Assessment and Plan: EKG here showing sinus tachycardia with nonspecific ST-T wave changes high lateral. Trop negative x3. Related to the episode of SVT and HoTN. Monitor on tele (4) UTI (urinary tract infection): Code(s): N39.0 - Urinary tract infection, site not specified Status: Acute Assessment and Plan: UA noted. UCx pending. BCx pending. Started on Zosyn. Narrow abx coverage when able. Murillo was changed out since of admission. Has Leni so will change to cefepime (5) Pancytopenia: Code(s): D61.818 - Other pancytopenia Status: Acute Assessment and Plan: Patient with chronic hemolytic anemia. Hgb 6.2 but normally runs in the 7 range. PRBC x1Unit ordered. Start steroids. WBC 3500. Leukopenia also chronic. ANC 2275. Follow Platelet count 80K. Plt count normally runs 80-100K range. Will follow. Heme/Onc consult. (6) Hyperbilirubinemia: Code(s): E80.6 - Other disorders of bilirubin metabolism Status: Acute Assessment and Plan: Patient with new eelvated bili level and is jaundiced. Half is direct bili. Probably related to hemolysis. Check RUQ US. LFTs also elevated. Will check hepatitis panel. 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 He is followed elsewhere for this. He has a supratherapeutic Vanco level at 58. Vanco being dosed by Pharmacy. Renal function worse today. Will Consult wound care. (8) Acute kidney injury: Code(s): N17.9 - Acute kidney failure, unspecified Status: Acute Assessment and Plan: Patient has a normal baseline Cr. Cr 1.7 on admission. Mild metabolic non gap acidosis. Potassium okay. Monitor UOP, renal function and electrolytes. (9) DM2 (diabetes mellitus, type 2): Code(s): E11.9 - Type 2 diabetes mellitus without complications Status: Acute Assessment and Plan: The patie
[2023-02-17 13:47] LABS: Creatine Kinase 20 U/L (55-170)
[2023-02-17 13:59] LABS: Hepatitis B Surface Antigen Negative (Negative)
[2023-02-17 14:05] LABS: HAV RESULT Negative (Negative); Hepatitis B Core IgM Result Negative (Negative)
[2023-02-17 14:16] LABS: Hepatitis C Virus Antibody Negative (Negative)
[2023-02-17] MEDS: CYANOCOBALAMIN 500 MCG TABLET PO (14:17)
[2023-02-17] MEDS: FLUTICASONE PROPIONATE 0.05% NA SPR 16 GM BTL (*BKC) 1 SPRAY NASAL (14:17)
[2023-02-17] MEDS: DULoxetine HCL 30 MG CAPSULE.DR PO (14:17)
[2023-02-17] MEDS: MAGNESIUM OXIDE 400 MG TABLET PO (14:18)
[2023-02-17] MEDS: PANTOPRAZOLE 40 MG TABLET PO (14:18)
[2023-02-17] MEDS: MULTIVITAMINS THERAPEUTIC TAB (*BKC) 1 TABLET PO (14:18)
[2023-02-17] MEDS: HYOSCYAMINE SULFATE 0.125 MG TABLET PO (14:18)
[2023-02-17] MEDS: CENTRAL LINE FLUSH 10 ML IV PUSH ×2 (14:19→20:14)
[2023-02-17] MEDS: methylPREDNISolone SOD SUCC 125 MG VIAL IV PUSH (14:20)
[2023-02-17 16:10] LABS: Creatinine Urine 20.2 mg/dL
[2023-02-17 16:13] LABS: Sodium Urine Random 70 meq/L
[2023-02-17 16:17] LABS: Eosinophil Urine None Seen % (None Seen); Urine Eos QC 2nd Tech Confirmed
[2023-02-17] MEDS: SODIUM CHLORIDE 0.9% IV 250 ML 30 ML IV CONT (17:16)
[2023-02-17] MEDS: MUPIROCIN 2% OINT 22 GM TUBE 1 APPLIC TOPICAL (17:17)
[2023-02-17] MEDS: FERROUS SULFATE 325 MG TABLET DR PO (17:17)
[2023-02-17] MEDS: methylPREDNISolone SOD SUCC 125 MG VIAL 60 MG IV PUSH ×2 (17:17→23:40)
[2023-02-17 17:38] LABS: Glucose Point of Care 193 mg/dl (65-105)
--- NOTE | 2023-02-17 18:56 | PDONCCN ---
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 Patient was admitted via ER on 02/09/23 when PCP ordered CBC and CMP for fatigue and generalized weakness. Creatinine was noted to be 8.1 and patient was admitted for acute renal failure. 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 NASH was high and ANCA and anti GBM antibody are pending. Patient was given three doses of solumedrol and transitioned to oral prednisone. Patient was also started on plasmapheresis 02/16/23 with plans of total of 7 treatments. Today, 02/17/23, was Treatment #2. Patient is also started on immune suppression with oral cyclophosphamide and Rituximab is recommended for B cell suppression by anti-CD 20 antibody. Review of Systems - Review of Systems patient was seen by bedside. his was also present during my visit. Per patient and his , patient has been severely fatigued and tired for past 3 months. He can barely make to 40 hr work week and sleeps at home post work. per he was confused at times. he had low appetite, nausea but no vomiting. he denies any rash. Denies chest pain or hemoptysis. There is no cough or dyspnea. No abdominal pain, n/v/d. There was no other preceding illnesses. No falls or syncope. No headaches. No TIA or CVA - Neurologic Reports confusion, Reports weakness, Denies focal weakness [facility] Medical History: Medical History (Last Updated 02/17/23 @ 12:44 by Neil Lizarraga MD) Chronic indwelling Murillo catheter Diabetic foot ulcer DM2 (diabetes mellitus, type 2) History of kidney stones Hodgkin lymphoma Hyperlipidemia Hypertension Port-A-Cath in place Surgical History: Surgical History (Last Reviewed 02/17/23 @ 01:08 by Bryan Guzman MD) History of renal stent History of surgery on lower extremity repair of right thigh muscle. Family History: Family History (Last Reviewed 02/17/23 @ 05:00 by Alexandra Mayo RN) Father Acute myocardial infarction Congestive heart failure Diabetes mellitus Hypertension Mother Acute myocardial infarction Cerebrovascular accident Congestive heart failure Diabetes mellitus Hypertension Sibling Asthma Father Asthma Daughter Asthma - Social History Social History: Social History (Last Reviewed 02/17/23 @ 01:08 by Bryan Guzman MD) Alcohol Use: Alcohol intake: former Substance Use: Substance use: never Others: Spiritual care concerns: No Smoking Status: Smoking status: Former smoker Tobacco type: cigarettes Smoking Pack-years: Smoking packs per day: 1.5 Smoking cigarettes per day: 30.0 Years smoked: 17 Smoking pack-years: 25.50 Social Determinants of Health: Has the Lack of Transportation Kept You From Medical Appointments or From Getting Medications?: No Within the Past 12 Months, Were You Worried Whether Your Food Would Run Out Before You Got Money to Buy More?: Never True What is Your Housing Situation Today?: I Have Housing Are You Worried That in the Next 2 Months, You May Not Have Your Own Housing to Live In?: No Do You Have Trouble Paying Your Heating Or Electricity Bill?: No Do You Have Trouble Paying For Medicines?: No Are You Currently Unemployed and Looking for Work?: No Highest Level of Education Completed: Grade School Do You Have Trouble With Childcare or the Care of a Family Member?: No Exam - Vital Signs Vital Signs - 24 hr 02/16/23 23
[2023-02-17] MEDS: INSULIN GLARGINE (*BKC) 100 UNITS/ML 8 UNITS SUB-Q (20:14)
[2023-02-17 20:17] LABS: Glucose Point of Care 211 mg/dl (65-105)
[2023-02-17 22:56] LABS: Vancomycin Random 45.1 ug/mL (10-20)
[2023-02-18] VITALS (20 sets, daily range): BP systolic 128–163; BP diastolic 54–82; PULSE 62–91; RESP 16–22; TEMP 36.1–37.1; O2SAT 96–100
[2023-02-18] MEDS: CEFEPIME 2 GM/NS 50 ML 2 GM/50 ML BAG IVPB ×2 (03:00→14:30)
[2023-02-18 05:00] LABS: Hematocrit 21.6 % (42.0-52.0); Immature Granulocyte Absolute 0.03 K/mm3 (0.00-0.031); Immature Granulocyte Percent A 1.8 % (0-0.5); Immature Platelet Fraction Pct 6.5 % (0.9-11.2); Lymphocytes Absolute Auto 0.28 K/mm3 (0.9-3.2); Mean Corpuscular HGB Conc 29.6 g/dl (32-36); Mean Corpuscular Hemoglobin 29.5 pg (26-34); Mean Corpuscular Volume 99.5 fl (80-100); Monocytes Absolute Auto 0.1 K/mm3 (0.1-0.6); Neutrophils Absolute Auto 1.3 K/mm3 (1.3-6.7); Neutrophils Percent Auto 78.2 % (45.5-73.1); Platelet Count Result 64 k/mm3 (150-375); Red Blood Count 2.17 M/mm3 (4.6-6.20); Red Cell Distribution Width 20.3 % (11.5-14.5)
[2023-02-18 05:10] LABS: Alanine Aminotransferase 43 U/L (6-50); Albumin Level 2.2 g/dL (3.5-5.1); Alkaline Phosphatase 329 U/L (38-126); Aspartate Amino Transferase 78 U/L (17-59); Bilirubin Direct 1.8 mg/dL (0-0.3); Bilirubin,Total 4.9 mg/dL (0.2-1.3); Magnesium 1.4 mg/dL (1.6-2.3)
[2023-02-18 05:13] LABS: Anion Gap 13 mmol/L (8-16); Blood Urea Nitrogen 17 mg/dL (9-20); Calcium 6.5 mg/dL (8.4-10.2); Carbon Dioxide 16 mmol/L (22-30); Chloride 107 mmol/L (98-107); Estimated CRCL calculation 55 ml/min; Estimated Glomerular Filt Rate 31; Glucose 288 mg/dL (65-110); Potassium 4.2 mmol/L (3.4-5.0); Sodium 136 mmol/L (137-145)
[2023-02-18 05:33] LABS: Hemoglobin 6.4 g/dL (14.0-18.0); White Blood Count 1.7 K/mm3 (4.5-10.0)
[2023-02-18 05:35] LABS: Hypochromasia 1+ (NORMAL); Platelet Estimate Decreased (Adequate)
[2023-02-18 05:36] LABS: Anisocytosis 1+ (NORMAL); Schistocytes None Seen (NORMAL)
[2023-02-18] MEDS: methylPREDNISolone SOD SUCC 125 MG VIAL 60 MG IV PUSH ×4 (06:19→23:28)
[2023-02-18] MEDS: CENTRAL LINE FLUSH 10 ML IV PUSH ×3 (06:19→21:00)
[2023-02-18] MEDS: SODIUM CHLORIDE 0.9% IV 250 ML 30 ML IV CONT (06:19)
[2023-02-18] MEDS: TUBING, BLOOD PLUM PUMP TUBING 1 EACH XX (06:19)
[2023-02-18 07:55] LABS: Glucose Point of Care 293 mg/dl (65-105)
[2023-02-18] MEDS: INSULIN GLARGINE (*BKC) 100 UNITS/ML 8 UNITS SUB-Q ×2 (08:34→20:51)
[2023-02-18] MEDS: INSULIN ASPART (*BKC) 100 UNITS/ML 12 UNITS SUB-Q ×3 (08:34→16:37)
[2023-02-18] MEDS: HYOSCYAMINE SULFATE 0.125 MG TABLET PO (08:39)
[2023-02-18] MEDS: CYANOCOBALAMIN 500 MCG TABLET PO (08:45)
[2023-02-18] MEDS: PANTOPRAZOLE 40 MG TABLET PO (08:45)
[2023-02-18] MEDS: FERROUS SULFATE 325 MG TABLET DR PO ×2 (08:45→16:37)
[2023-02-18] MEDS: MAGNESIUM OXIDE 400 MG TABLET PO (08:45)
[2023-02-18] MEDS: DULoxetine HCL 30 MG CAPSULE.DR PO (08:45)
[2023-02-18] MEDS: MUPIROCIN 2% OINT 22 GM TUBE 1 APPLIC TOPICAL (08:45)
[2023-02-18] MEDS: FLUTICASONE PROPIONATE 0.05% NA SPR 16 GM BTL (*BKC) 1 SPRAY NASAL (08:45)
[2023-02-18] MEDS: MULTIVITAMINS THERAPEUTIC TAB (*BKC) 1 TABLET PO (08:45)
[2023-02-18 09:12] LABS: Total Triiodothyronine (T3) 0.69 NG/ML (0.97-1.69)
[2023-02-18 09:15] LABS: Hematocrit 24.6 % (42.0-52.0); Hemoglobin 7.4 g/dL (14.0-18.0)
--- NOTE | 2023-02-18 09:46 | PM.IMPN ---
Progress Note: A&P Assessment and Plan (1) Sepsis: Qualifiers: Acute renal failure type: unspecified Sepsis acute organ dysfunction status: with acute organ dysfunction Sepsis type: sepsis due to unspecified organism Severe sepsis acute organ dysfunction type: acute renal failure Severe sepsis shock status: with septic shock Qualified Code(s): A41.9 - Sepsis, unspecified organism; R65.21 - Severe sepsis with septic shock; N17.9 - Acute kidney failure, unspecified Code(s): A41.9 - Sepsis, unspecified organism Status: Acute Assessment and Plan: present on admisison with HoTN, tachycardia and lactic acidosis. [place] related to UTI. BCx and UCx collected. On Vancomycin on admission. Zosyn added. Follow up on culture results. change to cefepime (2) SVT (supraventricular tachycardia): Code(s): I47.1 - Supraventricular tachycardia Status: Acute Assessment and Plan: Patient developed chest pain when received Vancomycin infusion and found to have a HR 180 and EKG (by EMS) consistent with SVT. He became HoTN. IV fluids administered and he spontaneously converted to NSR. BP was 66/53 documented here but fluid responsive. Related to Vancomycin toxicity? Vanco can cause HoTN if infused too fast. Check TSH. Add metoprolol if BP remains stable. (3) Chest pain: Code(s): R07.9 - Chest pain, unspecified Status: Acute Assessment and Plan: EKG here showing sinus tachycardia with nonspecific ST-T wave changes high lateral. Trop negative x3. Related to the episode of SVT and HoTN. Monitor on tele (4) UTI (urinary tract infection): Code(s): N39.0 - Urinary tract infection, site not specified Status: Acute Assessment and Plan: UA noted. UCx pending. BCx pending. Started on Zosyn. Narrow abx coverage when able. Murillo was changed out since of admission. Has Leni so will change to cefepime (5) Pancytopenia: Code(s): D61.818 - Other pancytopenia Status: Acute Assessment and Plan: Patient with chronic hemolytic anemia. Hgb 6.2 but normally runs in the 7 range. PRBC x1Unit ordered. Start steroids. WBC 3500. Leukopenia also chronic. ANC 2275. Follow Platelet count 80K. Plt count normally runs 80-100K range. Will follow. Heme/Onc consult. (6) Hyperbilirubinemia: Code(s): E80.6 - Other disorders of bilirubin metabolism Status: Acute Assessment and Plan: Patient with new eelvated bili level and is jaundiced. Half is direct bili. Probably related to hemolysis. Check RUQ US. LFTs also elevated. Will check hepatitis panel. Hold atorvastatin (7) Diabetic foot ulcer: Code(s): E11.621 - Type 2 diabetes mellitus with foot ulcer; L97.509 - Non-pressure chronic ulcer of other part of unspecified foot with unspecified severity Status: Acute Assessment and Plan: Patient has a hx of MRSA wound infection and is on Vanco IV. He is followed elsewhere for this. He has a supratherapeutic Vanco level at 58. Vanco being dosed by Pharmacy. Renal function worse today. Will Consult wound care. (8) Acute kidney injury: Code(s): N17.9 - Acute kidney failure, unspecified Status: Acute Assessment and Plan: Patient has a normal baseline Cr. Cr 1.7 on admission. Mild metabolic non gap acidosis. Potassium okay. Monitor UOP, renal function and electrolytes. (9) DM2 (diabetes mellitus, type 2): Code(s): E11.9 - Type 2 diabetes mellitus without complications Status: Acute Assessment and Plan: The patient's blood glucose was reviewed on 02/18 Glucose remains well controlled. Continue AccuCheks covering with sliding scale. Hypoglycemia protocol available as needed. Continue current medications. (10) Chronic indwelling Murillo catheter: Code(s): Z97.8 - Presence of other specified devices Status: Chronic Assessment and Plan: Murillo changed out here. Last time wa
[2023-02-18] MEDS: ONDANSETRON INJ 4 MG/2 ML VIAL IV PUSH (09:59)
[2023-02-18 12:06] LABS: Glucose Point of Care 356 mg/dl (65-105)
[2023-02-18 14:23] LABS: Hemoglobin 7.4 g/dL (14.0-18.0)
[2023-02-18 17:23] LABS: Glucose Point of Care 300 mg/dl (65-105)
--- NOTE | 2023-02-18 18:46 | PC.NURSE ---
Pt has been refusing to be turned/ repositioned today, refusing tx to back maceration this nurse educated pt on the importance of the tx but he cont to refuse all the above.
--- NOTE | 2023-02-18 19:03 | PDONCCN ---
HPI - Date of Consult Date/Time: 02/18/23 19:03 Requesting Physician: Malinda Alva MD Primary Care Provider: Wayne Johns MD - Consult Narrative Reason for consult: Pancytopenia Narrative: John Tony is a 63 year old male John Tony is a 62 year old male with morbid obesity and history of lymphoma status post right groin lymph node biopsy done 7 year ago in [facility]. He received chemotherapy by Dr. Greene at that time. Per patient he was in remission until about a year ago when he was noted to have severe anemia. Per patient Dr. Greene tried bone marrow biopsy multiple times including CT guided attempt but due to his morbid obesity he could not get into CT scanner for biopsy. Per patient he then received 4 treatments of Rituximab, one week apart some time earlier in 2022. Patient has been residing in [place] [facility] for past 6 years. He was previously admitted 12/22/22 for hemoglobin of 6.1g/dL and was transfused. He was also seen by Dr. Ryan on 12/30/22 and follow up with his oncologist was recommended. Patient is now admitted again 02/17/23 with severe anemia and hemoglobin of 6.2g/dL. Today, he has further lowering of WBC as well platelets. Hematology is consulted for further management. Review of Systems - Review of Systems patient is bed bound due to morbid obesity. he denies any pain. Denies fever, chills, night sweats. Denies weight loss. No chest pain, dyspnea, cough. No hemoptysis. No abdominal pain, n/v/d. No dysuria. - Neurologic Reports confusion, Reports weakness, Denies focal weakness [facility] Medical History: Medical History (Last Updated 02/17/23 @ 12:44 by Neil Lizarraga MD) Chronic indwelling Murillo catheter Diabetic foot ulcer DM2 (diabetes mellitus, type 2) History of kidney stones Hodgkin lymphoma Hyperlipidemia Hypertension Port-A-Cath in place Surgical History: Surgical History (Last Reviewed 02/17/23 @ 01:08 by Bryan Guzman MD) History of renal stent History of surgery on lower extremity repair of right thigh muscle. Family History: Family History (Last Reviewed 02/17/23 @ 05:00 by Alexandra Mayo RN) Father Acute myocardial infarction Congestive heart failure Diabetes mellitus Hypertension Mother Acute myocardial infarction Cerebrovascular accident Congestive heart failure Diabetes mellitus Hypertension Sibling Asthma Father Asthma Daughter Asthma - Social History Social History: Social History (Last Reviewed 02/17/23 @ 01:08 by Bryan Guzman MD) Alcohol Use: Alcohol intake: former Substance Use: Substance use: never Others: Spiritual care concerns: No Smoking Status: Smoking status: Former smoker Tobacco type: cigarettes Smoking Pack-years: Smoking packs per day: 1.5 Smoking cigarettes per day: 30.0 Years smoked: 17 Smoking pack-years: 25.50 Social Determinants of Health: Has the Lack of Transportation Kept You From Medical Appointments or From Getting Medications?: No Within the Past 12 Months, Were You Worried Whether Your Food Would Run Out Before You Got Money to Buy More?: Never True What is Your Housing Situation Today?: I Have Housing Are You Worried That in the Next 2 Months, You May Not Have Your Own Housing to Live In?: No Do You Have Trouble Paying Your Heating Or Electricity Bill?: No Do You Have Trouble Paying For Medicines?: No Are You Currently Unemployed and Looking for Work?: No Highest Level of Education Completed: Grade School Do You Have Trouble With Childcare or the Care of a Family Member?: No Exam - General Morbidly obese male, playing video game comfortably in room, no acute distress. - Vital Signs Vital Signs - 24 hr 02/17/23 20:05 02/17/23 20:00 02/17/23 20:00 Temperature 37.1 C 37.1 C Pulse Rate 76 76 73 Respiratory Rate 20 20 20 Blood Pressure 113/56 L 113/56 L Pulse Oxi
--- NOTE | 2023-02-18 20:35 | PC.NURSE ---
This RN covered the patient briefly until additional staff could arrive. No meds given, patient not in acute distress or having pain. Report given to Aimee GR who will assume care at this time.
[2023-02-18 21:12] LABS: Glucose Point of Care 332 mg/dl (65-105)
[2023-02-19] VITALS (12 sets, daily range): BP systolic 123–146; BP diastolic 66–85; PULSE 58–79; RESP 16–20; TEMP 36.3–36.7; O2SAT 99–100
[2023-02-19] MEDS: CEFEPIME 2 GM/NS 50 ML 2 GM/50 ML BAG IVPB ×2 (02:34→15:17)
[2023-02-19] MEDS: CENTRAL LINE FLUSH 10 ML IV PUSH ×3 (06:09→20:55)
[2023-02-19] MEDS: methylPREDNISolone SOD SUCC 125 MG VIAL 60 MG IV PUSH ×3 (06:09→17:56)
[2023-02-19 06:49] LABS: Hematocrit 24.1 % (42.0-52.0); Hemoglobin 7.5 g/dL (14.0-18.0); Immature Granulocyte Absolute 0.01 K/mm3 (0.00-0.031); Immature Granulocyte Percent A 0.7 % (0-0.5); Immature Platelet Fraction Pct 7.4 % (0.9-11.2); Lymphocytes Absolute Auto 0.31 K/mm3 (0.9-3.2); Lymphocytes Percent Auto 22.1 % (18.3-44.2); Mean Corpuscular HGB Conc 31.1 g/dl (32-36); Mean Corpuscular Hemoglobin 29.8 pg (26-34); Mean Corpuscular Volume 95.6 fl (80-100); Mean Platelet Volume 11.9 fl (7.4-10.4); Monocytes Absolute Auto 0.1 K/mm3 (0.1-0.6); Neutrophils Percent Auto 72.2 % (45.5-73.1); Platelet Count Result 64 k/mm3 (150-375); Red Blood Count 2.52 M/mm3 (4.6-6.20); Red Cell Distribution Width 18.7 % (11.5-14.5)
[2023-02-19 06:59] LABS: Alanine Aminotransferase 48 U/L (6-50); Albumin Level 2.4 g/dL (3.5-5.1); Alkaline Phosphatase 431 U/L (38-126); Anion Gap 8 mmol/L (8-16); Aspartate Amino Transferase 83 U/L (17-59); Bilirubin,Total 3.2 mg/dL (0.2-1.3); Blood Urea Nitrogen 24 mg/dL (9-20); Calcium 6.9 mg/dL (8.4-10.2); Carbon Dioxide 21 mmol/L (22-30); Chloride 105 mmol/L (98-107); Estimated CRCL calculation 49 ml/min; Estimated Glomerular Filt Rate 26; Glucose 292 mg/dL (65-110); Potassium 4.6 mmol/L (3.4-5.0); Sodium 134 mmol/L (137-145)
[2023-02-19 07:23] LABS: White Blood Count 1.4 K/mm3 (4.5-10.0)
[2023-02-19 07:24] LABS: Anisocytosis 1+ (NORMAL); Hypochromasia 1+ (NORMAL); Platelet Estimate Decreased (Adequate); Schistocytes None Seen (NORMAL)
[2023-02-19 07:30] LABS: Vancomycin Random 43.4 ug/mL (10-20)
[2023-02-19] MEDS: INSULIN ASPART (*BKC) 100 UNITS/ML 12 UNITS SUB-Q ×3 (09:30→17:56)
[2023-02-19] MEDS: INSULIN GLARGINE (*BKC) 100 UNITS/ML 8 UNITS SUB-Q ×2 (09:31→20:55)
[2023-02-19] MEDS: FERROUS SULFATE 325 MG TABLET DR PO ×2 (09:32→17:56)
[2023-02-19] MEDS: CYANOCOBALAMIN 500 MCG TABLET PO (09:32)
[2023-02-19] MEDS: DULoxetine HCL 30 MG CAPSULE.DR PO (09:32)
[2023-02-19] MEDS: PANTOPRAZOLE 40 MG TABLET PO (09:32)
[2023-02-19] MEDS: MAGNESIUM OXIDE 400 MG TABLET PO (09:33)
[2023-02-19] MEDS: FLUTICASONE PROPIONATE 0.05% NA SPR 16 GM BTL (*BKC) 1 SPRAY NASAL (09:33)
[2023-02-19] MEDS: MULTIVITAMINS THERAPEUTIC TAB (*BKC) 1 TABLET PO (09:33)
[2023-02-19] MEDS: MUPIROCIN 2% OINT 22 GM TUBE 1 APPLIC TOPICAL (09:33)
[2023-02-19] MEDS: HYOSCYAMINE SULFATE 0.125 MG TABLET PO (09:37)
[2023-02-19 12:04] LABS: Glucose Point of Care 316 mg/dl (65-105)
[2023-02-19 12:22] LABS: Glucose Point of Care 268 mg/dl (65-105)
--- NOTE | 2023-02-19 16:25 | PM.IMPN ---
Progress Note: A&P Assessment and Plan (1) Sepsis: Qualifiers: Acute renal failure type: unspecified Sepsis acute organ dysfunction status: with acute organ dysfunction Sepsis type: sepsis due to unspecified organism Severe sepsis acute organ dysfunction type: acute renal failure Severe sepsis shock status: with septic shock Qualified Code(s): A41.9 - Sepsis, unspecified organism; R65.21 - Severe sepsis with septic shock; N17.9 - Acute kidney failure, unspecified Code(s): A41.9 - Sepsis, unspecified organism Status: Acute Assessment and Plan: present on admisison with HoTN, tachycardia and lactic acidosis. [place] related to UTI. BCx and UCx collected. On Vancomycin on admission. Zosyn added. Follow up on culture results. change to cefepime 02/19: cont vanc + cefepime, bld cx pending (2) SVT (supraventricular tachycardia): Code(s): I47.1 - Supraventricular tachycardia Status: Acute Assessment and Plan: Patient developed chest pain when received Vancomycin infusion and found to have a HR 180 and EKG (by EMS) consistent with SVT. He became HoTN. IV fluids administered and he spontaneously converted to NSR. BP was 66/53 documented here but fluid responsive. Related to Vancomycin toxicity? Vanco can cause HoTN if infused too fast. Check TSH. Add metoprolol if BP remains stable. (3) Chest pain: Code(s): R07.9 - Chest pain, unspecified Status: Acute Assessment and Plan: EKG here showing sinus tachycardia with nonspecific ST-T wave changes high lateral. Trop negative x3. Related to the episode of SVT and HoTN. Monitor on tele (4) UTI (urinary tract infection): Code(s): N39.0 - Urinary tract infection, site not specified Status: Acute Assessment and Plan: UA noted. UCx pending. BCx pending. Started on Zosyn. Narrow abx coverage when able. Murillo was changed out since of admission. Has Leni so will change to cefepime 02/19: urine culture negative for infection (5) Pancytopenia: Code(s): D61.818 - Other pancytopenia Status: Acute Assessment and Plan: Patient with chronic hemolytic anemia. Hgb 6.2 but normally runs in the 7 range. PRBC x1Unit ordered. Start steroids. WBC 3500. Leukopenia also chronic. ANC 2275. Follow Platelet count 80K. Plt count normally runs 80-100K range. Will follow. Heme/Onc consult appreciated, supportive care only recommended at this time (6) Hyperbilirubinemia: Code(s): E80.6 - Other disorders of bilirubin metabolism Status: Acute Assessment and Plan: Patient with new eelvated bili level and is jaundiced. Half is direct bili. Probably related to hemolysis. Check RUQ US. LFTs also elevated. Will check hepatitis panel. Hold atorvastatin (7) Diabetic foot ulcer: Code(s): E11.621 - Type 2 diabetes mellitus with foot ulcer; L97.509 - Non-pressure chronic ulcer of other part of unspecified foot with unspecified severity Status: Acute Assessment and Plan: Patient has a hx of MRSA wound infection and is on Vanco IV. He is followed elsewhere for this. He has a supratherapeutic Vanco level at 58. Vanco being dosed by Pharmacy. Renal function worse today. Will Consult wound care. (8) Acute kidney injury: Code(s): N17.9 - Acute kidney failure, unspecified Status: Acute Assessment and Plan: Patient has a normal baseline Cr. Cr 1.7 on admission. Mild metabolic non gap acidosis. Potassium okay. Monitor UOP, renal function and electrolytes. (9) DM2 (diabetes mellitus, type 2): Code(s): E11.9 - Type 2 diabetes mellitus without complications Status: Acute Assessment and Plan: The patient's blood glucose was reviewed on 02/19 Glucose remains well controlled. Continue AccuCheks covering with sliding scale. Hypoglycemia protocol available as needed. Continue current medications. (10) Chronic indwelling Murillo catheter:
[2023-02-19 17:39] LABS: Glucose Point of Care 259 mg/dl (65-105)
[2023-02-19 21:33] LABS: Glucose Point of Care 214 mg/dl (65-105)
[2023-02-20] VITALS (15 sets, daily range): BP systolic 131–150; BP diastolic 66–80; PULSE 60–82; RESP 18–20; TEMP 35.8–36.4; O2SAT 98–100
[2023-02-20] MEDS: methylPREDNISolone SOD SUCC 125 MG VIAL 60 MG IV PUSH ×4 (01:20→17:49)
[2023-02-20] MEDS: CEFEPIME 2 GM/NS 50 ML 2 GM/50 ML BAG IVPB ×2 (01:24→12:48)
[2023-02-20] MEDS: CENTRAL LINE FLUSH 10 ML IV PUSH ×3 (05:02→20:07)
[2023-02-20 05:41] LABS: Hematocrit 24.2 % (42.0-52.0); Hemoglobin 7.5 g/dL (14.0-18.0); Immature Granulocyte Absolute 0.01 K/mm3 (0.00-0.031); Immature Granulocyte Percent A 0.9 % (0-0.5); Immature Platelet Fraction Pct 8.3 % (0.9-11.2); Lymphocytes Absolute Auto 0.27 K/mm3 (0.9-3.2); Lymphocytes Percent Auto 23.3 % (18.3-44.2); Mean Corpuscular Hemoglobin 29.8 pg (26-34); Mean Platelet Volume 12.9 fl (7.4-10.4); Monocytes Percent Auto 2.6 % (2.6-8.5); Neutrophils Absolute Auto 0.9 K/mm3 (1.3-6.7); Neutrophils Percent Auto 73.2 % (45.5-73.1); Platelet Count Result 62 k/mm3 (150-375); Red Blood Count 2.52 M/mm3 (4.6-6.20); Red Cell Distribution Width 18.4 % (11.5-14.5)
[2023-02-20 05:49] LABS: Alanine Aminotransferase 82 U/L (6-50); Albumin Level 2.4 g/dL (3.5-5.1); Alkaline Phosphatase 439 U/L (38-126); Anion Gap 11 mmol/L (8-16); Aspartate Amino Transferase 159 U/L (17-59); Bilirubin,Total 2.7 mg/dL (0.2-1.3); Blood Urea Nitrogen 29 mg/dL (9-20); Carbon Dioxide 20 mmol/L (22-30); Chloride 104 mmol/L (98-107); Estimated CRCL calculation 49 ml/min; Estimated Glomerular Filt Rate 26; Glucose 222 mg/dL (65-110); Potassium 4.5 mmol/L (3.4-5.0); Sodium 135 mmol/L (137-145)
[2023-02-20 05:57] LABS: White Blood Count 1.2 K/mm3 (4.5-10.0)
[2023-02-20 06:28] LABS: Platelet Estimate Decreased (Adequate); Schistocytes None Seen (NORMAL)
[2023-02-20 07:59] LABS: Glucose Point of Care 232 mg/dl (65-105)
[2023-02-20] MEDS: HYOSCYAMINE SULFATE 0.125 MG TABLET PO (10:20)
[2023-02-20] MEDS: DULoxetine HCL 30 MG CAPSULE.DR PO (10:21)
[2023-02-20] MEDS: MAGNESIUM OXIDE 400 MG TABLET PO (10:21)
[2023-02-20] MEDS: CYANOCOBALAMIN 500 MCG TABLET PO (10:21)
[2023-02-20] MEDS: MULTIVITAMINS THERAPEUTIC TAB (*BKC) 1 TABLET PO (10:21)
[2023-02-20] MEDS: FERROUS SULFATE 325 MG TABLET DR PO ×2 (10:21→17:49)
[2023-02-20] MEDS: INSULIN GLARGINE (*BKC) 100 UNITS/ML 8 UNITS SUB-Q ×2 (10:21→20:08)
[2023-02-20] MEDS: PANTOPRAZOLE 40 MG TABLET PO (10:21)
[2023-02-20] MEDS: MUPIROCIN 2% OINT 22 GM TUBE 1 APPLIC TOPICAL (10:22)
[2023-02-20] MEDS: INSULIN ASPART (*BKC) 100 UNITS/ML 12 UNITS SUB-Q ×2 (10:23→13:00)
--- NOTE | 2023-02-20 12:03 | PM.IMPN ---
Progress Note: A&P Assessment and Plan (1) Sepsis: Qualifiers: Acute renal failure type: unspecified Sepsis acute organ dysfunction status: with acute organ dysfunction Sepsis type: sepsis due to unspecified organism Severe sepsis acute organ dysfunction type: acute renal failure Severe sepsis shock status: with septic shock Qualified Code(s): A41.9 - Sepsis, unspecified organism; R65.21 - Severe sepsis with septic shock; N17.9 - Acute kidney failure, unspecified Code(s): A41.9 - Sepsis, unspecified organism Status: Acute Assessment and Plan: present on admisison with HoTN, tachycardia and lactic acidosis. [place] related to UTI. BCx and UCx collected. On Vancomycin on admission. Zosyn added. Follow up on culture results. change to cefepime 02/19: cont vanc + cefepime, bld cx pending 02/20: concern for osteo, gen surg consult pending, check CRP/PCT, consider imaging? (2) SVT (supraventricular tachycardia): Code(s): I47.1 - Supraventricular tachycardia Status: Acute Assessment and Plan: Patient developed chest pain when received Vancomycin infusion and found to have a HR 180 and EKG (by EMS) consistent with SVT. He became HoTN. IV fluids administered and he spontaneously converted to NSR. BP was 66/53 documented here but fluid responsive. Related to Vancomycin toxicity? Vanco can cause HoTN if infused too fast. Check TSH. Add metoprolol if BP remains stable. (3) Chest pain: Code(s): R07.9 - Chest pain, unspecified Status: Acute Assessment and Plan: EKG here showing sinus tachycardia with nonspecific ST-T wave changes high lateral. Trop negative x3. Related to the episode of SVT and HoTN. Monitor on tele (4) UTI (urinary tract infection): Code(s): N39.0 - Urinary tract infection, site not specified Status: Acute Assessment and Plan: UA noted. UCx pending. BCx pending. Started on Zosyn. Narrow abx coverage when able. Mur[place] was changed out since of admission. Has Leni so will change to cefepime 02/19: urine culture negative for infection (5) Pancytopenia: Code(s): D61.818 - Other pancytopenia Status: Acute Assessment and Plan: Patient with chronic hemolytic anemia. Hgb 6.2 but normally runs in the 7 range. PRBC x1Unit ordered. Start steroids. WBC 3500. Leukopenia also chronic. ANC 2275. Follow Platelet count 80K. Plt count normally runs 80-100K range. Will follow. Heme/Onc consult appreciated, supportive care only recommended at this time (6) Hyperbilirubinemia: Code(s): E80.6 - Other disorders of bilirubin metabolism Status: Acute Assessment and Plan: Patient with new eelvated bili level and is jaundiced. Half is direct bili. Probably related to hemolysis. Check RUQ US. LFTs also elevated. Will check hepatitis panel. Hold atorvastatin (7) Diabetic foot ulcer: Code(s): E11.621 - Type 2 diabetes mellitus with foot ulcer; L97.509 - Non-pressure chronic ulcer of other part of unspecified foot with unspecified severity Status: Acute Assessment and Plan: Patient has a hx of MRSA wound infection and is on Vanco IV. He is followed elsewhere for this. He has a supratherapeutic Vanco level at 58. Vanco being dosed by Pharmacy. Renal function worse today. Will Consult wound care. (8) Acute kidney injury: Code(s): N17.9 - Acute kidney failure, unspecified Status: Acute Assessment and Plan: Patient has a normal baseline Cr. Cr 1.7 on admission. Mild metabolic non gap acidosis. Potassium okay. Monitor UOP, renal function and electrolytes. (9) DM2 (diabetes mellitus, type 2): Code(s): E11.9 - Type 2 diabetes mellitus without complications Status: Acute Assessment and Plan: The patient's blood glucose was reviewed on 02/20 Glucose remains well controlled. Continue AccuCheks covering with sliding scale. Hypoglycemia protocol available as ne
[2023-02-20 12:10] LABS: Glucose Point of Care 235 mg/dl (65-105)
[2023-02-20 13:45] LABS: CRP 3.2 mg/dL (<1.0)
[2023-02-20 13:59] LABS: Procalcitonin 0.8 ng/mL
[2023-02-20 16:49] LABS: Glucose Point of Care 255 mg/dl (65-105)
[2023-02-20 20:10] LABS: Glucose Point of Care 250 mg/dl (65-105)
[2023-02-21] VITALS (12 sets, daily range): BP systolic 116–155; BP diastolic 61–75; PULSE 55–82; RESP 16–20; TEMP 36.1–36.8; O2SAT 98–100
[2023-02-21] MEDS: methylPREDNISolone SOD SUCC 125 MG VIAL 60 MG IV PUSH ×4 (00:07→18:17)
[2023-02-21] MEDS: CEFEPIME 2 GM/NS 50 ML 2 GM/50 ML BAG IVPB ×2 (02:54→14:39)
[2023-02-21 05:05] LABS: Hemoglobin 7.5 g/dL (14.0-18.0); Immature Granulocyte Absolute 0.01 K/mm3 (0.00-0.031); Immature Platelet Fraction Pct 8.4 % (0.9-11.2); Lymphocytes Absolute Auto 0.26 K/mm3 (0.9-3.2); Lymphocytes Percent Auto 26.3 % (18.3-44.2); Mean Corpuscular HGB Conc 31.3 g/dl (32-36); Mean Corpuscular Hemoglobin 29.2 pg (26-34); Mean Corpuscular Volume 93.4 fl (80-100); Mean Platelet Volume 12.1 fl (7.4-10.4); Neutrophils Absolute Auto 0.7 K/mm3 (1.3-6.7); Neutrophils Percent Auto 69.7 % (45.5-73.1); Platelet Count Result 57 k/mm3 (150-375); Red Blood Count 2.57 M/mm3 (4.6-6.20); Red Cell Distribution Width 17.8 % (11.5-14.5)
[2023-02-21 05:19] LABS: Alanine Aminotransferase 131 U/L (6-50); Albumin Level 2.5 g/dL (3.5-5.1); Alkaline Phosphatase 438 U/L (38-126); Anion Gap 6 mmol/L (8-16); Aspartate Amino Transferase 172 U/L (17-59); Bilirubin,Total 2.2 mg/dL (0.2-1.3); Blood Urea Nitrogen 30 mg/dL (9-20); Calcium 7.1 mg/dL (8.4-10.2); Carbon Dioxide 22 mmol/L (22-30); Chloride 102 mmol/L (98-107); Estimated CRCL calculation 45 ml/min; Estimated Glomerular Filt Rate 24; Glucose 247 mg/dL (65-110); Potassium 4.2 mmol/L (3.4-5.0); Sodium 130 mmol/L (137-145)
[2023-02-21 05:41] LABS: Platelet Estimate Decreased (Adequate); Schistocytes None Seen (NORMAL)
[2023-02-21 05:44] LABS: Vancomycin Random 32.4 ug/mL (10-20)
[2023-02-21] MEDS: CENTRAL LINE FLUSH 10 ML IV PUSH ×3 (06:41→20:15)
[2023-02-21 08:05] LABS: Glucose Point of Care 255 mg/dl (65-105)
--- NOTE | 2023-02-21 08:52 | PM.CNGS ---
Assessment and Plan Assessment and plan (1) Diabetic foot ulcer: Qualifiers: Diabetes mellitus type: other specified (including ISIDORO) Diabetic foot ulcer location: midfoot Laterality: right Non-pressure ulcer stage: with other severity Qualified Code(s): E13.621 - Other specified diabetes mellitus with foot ulcer; L97.418 - Non-pressure chronic ulcer of right heel and midfoot with other specified severity Code(s): E11.621 - Type 2 diabetes mellitus with foot ulcer; L97.509 - Non-pressure chronic ulcer of other part of unspecified foot with unspecified severity Status: Acute Assessment and Plan: Osteomyelitis present, currently being treated with IV antibiotics, wound looks okay at this time and no further surgical intervention needed acutely, 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-up with 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 installation supervisor for continued wound care and treatment (2) Sepsis: Qualifiers: Acute renal failure type: unspecified Sepsis acute organ dysfunction status: with acute organ dysfunction Sepsis type: sepsis due to unspecified organism Severe sepsis acute organ dysfunction type: acute renal failure Severe sepsis shock status: with septic shock Qualified Code(s): A41.9 - Sepsis, unspecified organism; R65.21 - Severe sepsis with septic shock; N17.9 - Acute kidney failure, unspecified Code(s): A41.9 - Sepsis, unspecified organism Status: Acute Assessment and Plan: resolving, continue antibiotics and supportive (3) DM2 (diabetes mellitus, type 2): Code(s): E11.9 - Type 2 diabetes mellitus without complications Status: Acute Assessment and Plan: stable, continue tight blood sugar control History of Present Illness Consult details Consult date: 02/21/23 Reason for consult: wound care Requesting physician: Malinda Alva MD Narrative: The patient is a 63 year old male with multiple medical issues that [facility], mental status change. Patient has since been admitted to the medical service and started on broad spectrum antibiotics per the sepsis protocol. Of note, the patient had debridement of a chronic ulcer on his right foot by his installation supervisor recently. This wound has grown out MRSA and did have bone culture positive for likely osteomyelitis. The patient has been being treated with vancomycin IV. The patient was getting an infusion when he went into [facility] and was brought into the hospital. The patient is noted to have a high trough level of his vancomycin and that has been being held at this time. The patient reports that he feels better at this time. Review of Systems Review of Systems: All systems reviewed & are unremarkable except as noted in HPI and below PMFSH Past Medical History Medical History Chronic indwelling Murillo catheter Diabetic foot ulcer DM2 (diabetes mellitus, type 2) History of kidney stones Hodgkin lymphoma Hyperlipidemia Hypertension Port-A-Cath in place Surgical History Surgical History History of renal stent History of surgery on lower extremity repair of right thigh muscle. Family History Family History Father Acute myocardial infarction Congestive heart failure Diabetes mellitus Hypertension Mother Acute myocardial infarction Cerebrovascular accident Congestive heart failure Diabetes mellitus Hypertension Sibling Asthma Father Asthma Daughter Asthma Social History Social History Social History: the patient is and is disabled. He has 3 children. He resides at [facility]. he is a former smoker. Code status full code Smoking packs per day: 1.5 Smoking cigarettes per day: 30.0 Years smoked: 17 Smoking pack-years: 25.50 Smoking status: Former smoker Tobac
[2023-02-21] MEDS: PANTOPRAZOLE 40 MG TABLET PO (09:20)
[2023-02-21] MEDS: MAGNESIUM OXIDE 400 MG TABLET PO (09:20)
[2023-02-21] MEDS: CYANOCOBALAMIN 500 MCG TABLET PO (09:20)
[2023-02-21] MEDS: INSULIN ASPART (*BKC) 100 UNITS/ML 12 UNITS SUB-Q ×3 (09:20→18:12)
[2023-02-21] MEDS: DULoxetine HCL 30 MG CAPSULE.DR PO (09:20)
[2023-02-21] MEDS: FERROUS SULFATE 325 MG TABLET DR PO ×2 (09:20→18:17)
[2023-02-21] MEDS: MULTIVITAMINS THERAPEUTIC TAB (*BKC) 1 TABLET PO (09:20)
[2023-02-21] MEDS: HYOSCYAMINE SULFATE 0.125 MG TABLET PO (09:20)
[2023-02-21] MEDS: INSULIN GLARGINE (*BKC) 100 UNITS/ML 8 UNITS SUB-Q ×2 (09:21→20:15)
[2023-02-21] MEDS: EPOETIN ALFA 10,000 UNITS/ML VIAL 10000 UNITS SUB-Q (10:27)
--- NOTE | 2023-02-21 11:29 | PM.DS ---
DS: Admitting Diagnosis Discharge Date 02/21/2023 Admitting Diagnosis Altered mental status DS: Discharge Diagnosis Discharge Diagnosis (1) Sepsis: Qualifiers: Acute renal failure type: unspecified Sepsis acute organ dysfunction status: with acute organ dysfunction Sepsis type: sepsis due to unspecified organism Severe sepsis acute organ dysfunction type: acute renal failure Severe sepsis shock status: with septic shock Qualified Code(s): A41.9 - Sepsis, unspecified organism; R65.21 - Severe sepsis with septic shock; N17.9 - Acute kidney failure, unspecified Code(s): A41.9 - Sepsis, unspecified organism Status: Acute Assessment and Plan: present on admisison with HoTN, tachycardia and lactic acidosis. [place] related to UTI. BCx and UCx collected. On Vancomycin on admission. Zosyn added. Follow up on culture results. change to cefepime 02/19: cont vanc + cefepime, bld cx pending 02/20: concern for osteo, gen surg consult pending, check CRP/PCT, consider imaging? (2) SVT (supraventricular tachycardia): Code(s): I47.1 - Supraventricular tachycardia Status: Acute Assessment and Plan: Patient developed chest pain when received Vancomycin infusion and found to have a HR 180 and EKG (by EMS) consistent with SVT. He became HoTN. IV fluids administered and he spontaneously converted to NSR. BP was 66/53 documented here but fluid responsive. Related to Vancomycin toxicity? Vanco can cause HoTN if infused too fast. Check TSH. Add metoprolol if BP remains stable. (3) Chest pain: Code(s): R07.9 - Chest pain, unspecified Status: Acute Assessment and Plan: EKG here showing sinus tachycardia with nonspecific ST-T wave changes high lateral. Trop negative x3. Related to the episode of SVT and HoTN. Monitor on tele (4) UTI (urinary tract infection): Code(s): N39.0 - Urinary tract infection, site not specified Status: Acute Assessment and Plan: UA noted. UCx pending. BCx pending. Started on Zosyn. Narrow abx coverage when able. [place] was changed out since of admission. Has Leni so will change to cefepime 02/19: urine culture negative for infection (5) Pancytopenia: Code(s): D61.818 - Other pancytopenia Status: Acute Assessment and Plan: Patient with chronic hemolytic anemia. Hgb 6.2 but normally runs in the 7 range. PRBC x1Unit ordered. Start steroids. WBC 3500. Leukopenia also chronic. ANC 2275. Follow Platelet count 80K. Plt count normally runs 80-100K range. Will follow. Heme/Onc consult appreciated, supportive care only recommended at this time (6) Hyperbilirubinemia: Code(s): E80.6 - Other disorders of bilirubin metabolism Status: Acute Assessment and Plan: Patient with new eelvated bili level and is jaundiced. Half is direct bili. Probably related to hemolysis. Check RUQ US. LFTs also elevated. Will check hepatitis panel. Hold atorvastatin (7) Diabetic foot ulcer: Code(s): E11.621 - Type 2 diabetes mellitus with foot ulcer; L97.509 - Non-pressure chronic ulcer of other part of unspecified foot with unspecified severity Status: Acute Assessment and Plan: Patient has a hx of MRSA wound infection and is on Vanco IV. He is followed elsewhere for this. He has a supratherapeutic Vanco level at 58. Vanco being dosed by Pharmacy. Renal function worse today. Will Consult wound care. (8) Acute kidney injury: Code(s): N17.9 - Acute kidney failure, unspecified Status: Acute Assessment and Plan: Patient has a normal baseline Cr. Cr 1.7 on admission. Mild metabolic non gap acidosis. Potassium okay. Monitor UOP, renal function and electrolytes. (9) DM2 (diabetes mellitus, type 2): Code(s): E11.9 - Type 2 diabetes mellitus without complications Status: Acute Assessment and Plan: The patient's blood glucose was reviewed on 02/20 Glucose remains we
[2023-02-21 13:01] LABS: Glucose Point of Care 310 mg/dl (65-105)
[2023-02-21] MEDS: MUPIROCIN 2% OINT 22 GM TUBE 1 APPLIC TOPICAL (14:40)
[2023-02-21] MEDS: ACETAMINOPHEN 325 MG TABLET 650 MG PO (14:42)
[2023-02-21 15:29] LABS: SARS-CoV-2 RNA PCR Negative (Negative)
[2023-02-21 16:40] LABS: Glucose Point of Care 331 mg/dl (65-105)
[2023-02-21 19:54] LABS: Glucose Point of Care 260 mg/dl (65-105)
== END 2023-02-21 20:24 | DRG 720 ==
LOC: ANHED 02-17 03:06 → ANHIMU 02-17 03:42
PROVIDERS: Internal Medicine; Admitting Provider Internal Medicine; Emergency Provider Preventive Medicine Aerospace Medicine; PCP Hospitalist; Visit Provider Student in an Organized Health Care Education/Training Program
DX: A41.9 Sepsis, unspecified organism (principal); R65.21 Severe sepsis with septic shock; D61.818 Other pancytopenia; N17.9 Acute kidney failure, unspecified; E11.621 Type 2 diabetes mellitus with foot ulcer; D53.1 Other megaloblastic anemias, not elsewhere classified; D58.9 Hereditary hemolytic anemia, unspecified; T36.8X5A Adverse effect of other systemic antibiotics, initial encounter; E11.69 Type 2 diabetes mellitus with other specified complication; E66.01 Morbid (severe) obesity due to excess calories; Z68.43 Body mass index [BMI] 50.0-59.9, adult; I47.1 Supraventricular tachycardia; L97.419 Non-pressure chronic ulcer of right heel and midfoot with unspecified severity; M86.9 Osteomyelitis, unspecified; E80.6 Other disorders of bilirubin metabolism; E78.5 Hyperlipidemia, unspecified; B95.62 Methicillin resistant Staphylococcus aureus infection as the cause of diseases classified elsewhere; Z20.822 Contact with and (suspected) exposure to COVID-19; Z85.71 Personal history of Hodgkin lymphoma; Z79.4 Long term (current) use of insulin; Z87.442 Personal history of urinary calculi; Z87.891 Personal history of nicotine dependence; Z89.412 Acquired absence of left great toe; Z89.421 Acquired absence of other right toe(s)
CPT/HCPCS: 36415; 36430; 71045; 76705; 76775; 80048; 80053; 80074; 80076; 80202; 81001; 82550; 82570; 82948; 83036; 83605; 83690; 83735; 84145; 84300; 84439; 84443; 84480; 84484; 85014; 85018; 85025; 85055; 85610; 85730; 85999; 86140; 86850; 86860; 86870; 86880; 86900; 86901; 86902; 86922; 86978; 87040; 87086; 87088; 87635; 93005; 96361; 96365; 96366; 96367; 96375; 99285; A9270; G0378; J0613; J0692; J1815; J2405; J2543; J2930; J7030; J7050; P9016; Q4081